=== PATIENT | female | born 1995 | race Caucasian/White ===

== ENCOUNTER 2020-09-19 13:53 | Emergency (ER) | payer OTHER, SELFPAY ==
--- NOTE | ~2020-09-19 | CT_ITS ---
EXAMINATION: CT ABDOMEN AND PELVIS WITHOUT CONTRAST CLINICAL INFORMATION: Abdominal pain COMPARISON: None TECHNIQUE: Contiguous axial thin section helical images of the abdomen were performed without contrast. The data set was reformatted in the coronal and sagittal planes and reviewed on an independent workstation. This CT examination was performed using dose optimization techniques as appropriate, variously including the following: *Automated exposure control *Adjustment of mA and/or kV according to patient size (this includes techniques or standardized protocols for targeted exams where dose is matched to indication/reason for exam; i.e. extremities or head) *Use of iterative reconstruction technique DLP: 760 mGy-cm FINDINGS: LUNG BASES: Unremarkable LIVER, GALLBLADDER, BILIARY TREE: Normal PANCREAS: Normal SPLEEN: No splenomegaly ADRENAL GLANDS, KIDNEYS URETERS AND BLADDER: No adrenal masses are seen. Both kidneys appear normal without stones, masses or hydronephrosis. Of note, in the region of the right uterine CTA, there is a 2 mm punctate calcifications seen with some mild equivocal thickening of the bladder at this location. The possibility of a tiny distal right ureteral calculus cannot be entirely excluded (4:667) and correlation is recommended with the patient's symptoms. BOWEL LOOPS: Some scattered colonic diverticular changes are present without diverticulitis. No evidence of bowel obstruction. Small bowel is nondilated. The appendix is normal. LYMPH NODES: No retroperitoneal lymphadenopathy. VASCULAR: Unremarkable. BONES: Unremarkable PELVIS: An anteverted uterus is present. Both ovaries appear normal. An abnormal adnexal mass is not seen. No free intraperitoneal fluid is present. CT/CT abdomen wo con IMPRESSION: Question of tiny tiny punctate nonobstructing calculus at right ureteral vesicle junction. Please correlate with patient's symptoms.
[2020-09-19 14:00] VITALS: BP 138/87; PULSE 77; RESP 15; TEMP 36.6; O2SAT 98; BMI 39.9
[2020-09-19 16:33] LABS: MANUAL DIFF FLAG NO
[2020-09-19 16:38] LABS: Basophils Percent Auto 0.6 % (0-2); Eosinophils Percent Auto 0.5 % (0-4); Hematocrit 37.5 % (37-47); Hemoglobin 12.4 g/dl (12.0-16.0); Imm Gran Abs Auto 0.02 X10*3/uL (0.00-0.03); Imm Gran Pct Auto 0.3 % (0.0-0.4); Lymphocytes Percent Auto 31.4 % (20-40); Mean Corpuscular HGB Conc 33.1 g/dl (31.0-35.0); Mean Corpuscular Hemoglobin 28.8 pg (27.0-33.0); Mean Platelet Volume 9.2 fL (9.4-12.3); Monocytes Absolute Auto 0.4 X10*3/uL (0.1-1.2); Monocytes Percent Auto 6.1 % (2-11); Neutrophils Absolute Auto 3.9 X10*3/uL (2.0-8.3); Neutrophils Percent Auto 61.1 % (45-73); Platelet Count 315 X10*3/uL (160-400); Red Blood Count 4.31 X10*6/uL (4.20-5.50); Red Cell Distribution Width 12.8 % (11.0-16.0); White Blood Count 6.4 X10*3/uL (4.8-10.8)
[2020-09-19 17:02] LABS: Anion Gap 16 (12-20); Blood Urea Nitrogen 15 mg/dL (9-16); Calcium 9.7 mg/dL (8.4-10.2); Carbon Dioxide 23 mmol/L (22-29); Chloride 107 mmol/L (96-108); Creatinine Clr Calc Pharmacy 118.7; Estimated Glomerular Filt Rate > 60; Glucose Random 88 mg/dL (60-115); Potassium 3.8 mmol/L (3.3-5.1); Sodium 142 mmol/L (135-145)
--- NOTE | 2020-09-19 17:45 | ED_ITS ---
HPI - Abdominal Pain General Chief Complaint: Abdominal Pain Stated Complaint: abd pain Time Seen by Provider: 09/19/20 18:20 Source: patient Mode of arrival: ambulatory Limitations: no limitations History of Present Illness HPI narrative: 25-year-old female with no significant past medical history presents with 3 days of epigastric pain and 5 days of lower abdominal pain with urinary frequency. She has not had any prior abdominal surgeries, and does not report any vaginal pain, vaginal discharge, abnormal vaginal bleeding, fevers, chills, chest pain or pressure, palpitations, cough, abdominal distention, [place], vomiting, diarrhea, constipation, or edema. MD elicited complaint: abdominal pain Pertinent past history: none Onset (ago): day(s) Pain Consistency: constant Location: epigastric and suprapubic Severity: moderate Pain scale (0-10): 7 Quality: aching Exacerbating factors: movement Associated symptoms: dysuria Treatments prior to arrival: NSAIDs Related Data Patient : No Previous Rx's Medication Instructions Recorded ibuprofen 600 mg PO Q6H PRN #60 tab 09/19/20 prednisone 20 mg PO DAILY 4 Days #4 tab 09/19/20 tamsulosin [Flomax] 0.4 mg PO DAILY #14 cap 09/19/20 Allergies Allergy/AdvReac Type Severity Reaction Status Date / Time No Known Allergies Allergy Unverified 02/18/20 17:01 Review of Systems Review of Systems Constitutional: No Weight loss, No Fever, No Chills, No Night Sweats, No Fatigue, No Malaise ENT/Mouth: No Hearing loss, No Ear Pain, No Nasal Congestion, No Sinus Pain, No Hoarseness, No sore throat, No Rhinorrhea, No Swallowing Difficulty Eyes: No Eye Pain, No Swelling, No Redness, No Foreign Body, No Discharge, No Vision Changes Cardiovascular: No Chest Pain, No SOB, No Dyspnea on Exertion, No Orthopnea, No Edema, No Palpitations Respiratory: No Cough, No Sputum, No Wheezing, No Smoke Exposure, No Dyspnea Gastrointestinal: Positive Nausea, Positive Vomiting, positive Diarrhea, posit luana abdominal Pain, No Hematochezia, No Melena Genitourinary: no irregular bleeding, No Dysuria, No Urinary Frequency, No Hematuria, No Urinary Incontinence, No Urgency, No Flank Pain, No Urinary Flow Changes, No Hesitancy Musculoskeletal: No joint pain, No Myalgias, No Joint Swelling Skin: No Skin Lesions, No rash Neuro: No Weakness, No Numbness, No Paresthesias, No Loss of Consciousness, No Dizziness, No Headache Psych: No Anxiety/Panic, No Depression, No SI/HI/AH/VH, No Social Issues Heme/Lymph: No Bruising, No Bleeding,No Lymphadenopathy Endocrine: No Polyuria, No Polydipsia, No Temperature Intolerance Physical Exam Vital Signs: Vital Signs: Last Vital Signs Temp 97.8 F 09/19/20 22:00 Pulse 65 09/19/20 22:00 Resp 18 09/19/20 22:00 BP 126/85 09/19/20 22:00 Pulse Ox 97 09/19/20 22:00 Body Mass Index 39.9 Appearance: Alert. Oriented X3. No acute distress. Eyes: Pupils equal, round and reactive to light. ENT: Pharynx normal. Neck: Normal inspection. Neck supple. CVS: Normal heart rate and rhythm. Pulses normal. Respiratory: No respiratory distress. Breath sounds normal. Abdomen: Soft and tender to palpation at the epigastric and suprapubic. No CVA tenderness. Skin: Skin warm and dry. Normal skin color. Normal skin turgor. Extremities: No lower extremity edema. Neuro: No motor deficit. No sensory deficit. Course Course Course Narrative: 25-year-old female with no significant past medical history presents with suprapubic abdominal pain, and epigastric abdominal pain for several days. Lower abdominal pain started prior to the epigastric pain. She does state also have muscle aches and thinks that she could be . CBC and Chem 7 were drawn while she was in the waiting room, currently awaiting urinalysis, U preg and CT of the abdomen, will add COVID swab. CT scan positive for kidney stones consistent with urinalysis positive for heme without leukocyte esterase nitrites or bacteria. Patient updated on plan to discharge with prednisone, Flomax, and Motrin. Patient verbalized understanding of and agrees to plan of care discharge home. MDM - Abdominal Pain Differential Diagnosis Differential diagnosis: Likely abdominal pain, acute appendicitis, calculus of kidney, ovarian cyst and pancreatitis Lab Data Attestation: I reviewed the patient's lab results. Result diagrams: 09/19/20 16:28 09/19/20 16:28 Labs: Lab Results 09/19/20 09/19/20 09/19/20 Range/Units 16:28 16:28 16:28 WBC 6.4 (4.8-10.8) X10*3/uL RBC 4.31 (4.20-5.50) X10*6/uL Hgb 12.4 (12.0-16.0) g/dl Hct 37.5 (37-47) % MCV 87.0 (80-98) fL MCH 28.8 (27.0-33.0) pg MCHC 33.1 (31.0-35.0) g/dl RDW 12.8 (11.0-16.0) % Plt Count 315 (160-400) X10*3/uL MPV 9.2 L (9.4-12.3) fL Immature Gran % (Auto) 0.3 (0.0-0.4) % Neut % (Auto) 61.1 (45-73) % Lymph % (Auto) 31.4 (20-40) % [place] % (Auto) 6.1 (2-11) % Eos % (Auto) 0.5 (0-4) % Baso % (Auto) 0.6 (0-2) % Lymph # (Auto) 2.0 (1.2-4.9) X10*3/uL [place] # (Auto) 0.4 (0.1-1.2) X10*3/uL Eos # (Auto) 0.0 (0.0-0.4) X10*3/uL Baso # (Auto) 0.0 (0.0-0.2) X10*3/uL Abs Immat Gran (auto) 0.02 (0.00-0.03) X10*3/uL Absolute Neuts (auto) 3.9 (2.0-8.3) X10*3/uL Absolute Nucleated RBC 0.000 (0.0-0.012) X10*3/uL Nucleated RBC % (auto) 0.0 (0.0-0.2) /100WBC Hold Blue Top SEE NOTE Sodium 142 (135-145) mmol/L Potassium 3.8 (3.3-5.1) mmol/L Chloride 107 (96-108) mmol/L Carbon Dioxide 23 (22-29) mmol/L Anion Gap 16 (12-20) BUN 15 (9-16) mg/dL Creatinine 0.81 (0.5-1.4) mg/dL Estim Creat Clear Calc 118.7 Estimated GFR > 60 Random Glucose 88 (60-115) mg/dL Calcium 9.7 (8.4-10.2) mg/dL Total Bilirubin 0.6 (0.0-1.0) mg/dL Direct Bilirubin < 0.2 (0.0-0.5) mg/dL AST 22 (5-31) U/L ALT 14 (0-31) U/L Alkaline Phosphatase 70 (39-117) U/L Total Protein 7.8 (6.5-8.0) g/dL Albumin 4.6 (3.5-5.0) g/dL Lipase 18 (8-78) U/L Urine Color Urine Appearance Urine pH (5.0-8.0) Ur Specific [place] (1.005-1.025) Urine Protein (NEG-TRACE) MG/DL Urine Glucose (UA) (NEG) MG/DL Urine Ketones (NEG) MG/DL Urine Blood (NEG) Urine Nitrite (NEG) Ur Leukocyte Esterase (NEG) Urine RBC (0) /HPF Urine WBC (0-4) /HPF Ur Squamous Epith Cells /LPF Urine Bacteria /LPF Urine Mucus /LPF Urine Test (NEGATIVE) COVID-19 (KAYLENE) (Negative) COVID-19 Clin Com 09/19/20 09/19/20 09/19/20 Range/Units 18:05 18:05 23:40 WBC (4.8-10.8) X10*3/uL RBC (4.20-5.50) X10*6/uL Hgb (12.0-16.0) g/dl Hct (37-47) % MCV (80-98) fL MCH (27.0-33.0) pg MCHC (31.0-35.0) g/dl RDW (11.0-16.0) % Plt Count (160-400) X10*3/uL MPV (9.4-12.3) fL Immature Gran % (Auto) (0.0-0.4) % Neut % (Auto) (45-73) % Lymph % (Auto) (20-40) % [place] % (Auto) (2-11) % Eos % (Auto) (0-4) % Baso % (Auto) (0-2) % Lymph # (Auto) (1.2-4.9) X10*3/uL [place] # (Auto) (0.1-1.2) X10*3/uL Eos # (Auto) (0.0-0.4) X10*3/uL Baso # (Auto) (0.0-0.2) X10*3/uL Abs Immat Gran (auto) (0.00-0.03) X10*3/uL Absolute Neuts (auto) (2.0-8.3) X10*3/uL Absolute Nucleated RBC (0.0-0.012) X10*3/uL Nucleated RBC % (auto) (0.0-0.2) /100WBC Hold Blue Top Sodium (135-145) mmol/L Potassium (3.3-5.1) mmol/L Chloride (96-108) mmol/L Carbon Dioxide (22-29) mmol/L Anion Gap (12-20) BUN (9-16) mg/dL Creatinine (0.5-1.4) mg/dL Estim Creat Clear Calc Estimated GFR Random Glucose (60-115) mg/dL Calcium (8.4-10.2) mg/dL Total Bilirubin (0.0-1.0) mg/dL Direct Bilirubin (0.0-0.5) mg/dL AST (5-31) U/L ALT (0-31) U/L Alkaline Phosphatase (39-117) U/L Total Protein (6.5-8.0) g/dL Albumin (3.5-5.0) g/dL Lipase (8-78) U/L Urine Color YELLOW Urine Appearance CLEAR Urine pH 7.0 (5.0-8.0) Ur Specific [place] 1.015 (1.005-1.025) Urine Protein NEG (NEG-TRACE) MG/DL Urine Glucose (UA) NEG (NEG) MG/DL Urine Ketones NEG (NEG) MG/DL Urine Blood 3+ H (NEG) Urine Nitrite NEG (NEG) Ur Leukocyte Esterase NEG (NEG) Urine RBC 10-14 H (0) /HPF Urine WBC 1-4 (0-4) /HPF Ur Squamous Epith Cells 2+ /LPF Urine Bacteria 1+ /LPF Urine Mucus 2+ /LPF Urine Test NEGATIVE (NEGATIVE) COVID-19 (KAYLENE) Negative (Negative) COVID-19 Clin Com See Note Imaging Data CT scan - abdomen: Attestation: I personally reviewed and interpreted this imaging study as follows: Radiologist's impression: EXAMINATION: CT ABDOMEN AND PELVIS WITHOUT CONTRAST CLINICAL INFORMATION: Abdominal pain COMPARISON: None TECHNIQUE: Contiguous axial thin section helical images of the abdomen were performed without contrast. The data set was reformatted in the coronal and sagittal planes and reviewed on an independent workstation. This CT examination was performed using dose optimization techniques as appropriate, variously including the following: *Automated exposure control *Adjustment of mA and/or kV according to patient size (this includes techniques or standardized protocols for targeted exams where dose is matched to indication/reason for exam; i.e. extremities or head) *Use of iterative reconstruction technique DLP: 760 mGy-cm FINDINGS: LUNG BASES: Unremarkable LIVER, GALLBLADDER, BILIARY TREE: Normal PANCREAS: Normal SPLEEN: No splenomegaly ADRENAL GLANDS, KIDNEYS URETERS AND BLADDER: No adrenal masses are seen. Both kidneys appear normal without stones, masses or hydronephrosis. Of note, in the region of the right uterine CTA, there is a 2 mm punctate calcifications seen with some mild equivocal thickening of the bladder at this location. The possibility of a tiny distal right ureteral calculus cannot be entirely excluded (4:667) and correlation is recommended with the patient's symptoms. BOWEL LOOPS: Some scattered colonic diverticular changes are present without diverticulitis. No evidence of bowel obstruction. Small bowel is nondilated. The appendix is normal. LYMPH NODES: No retroperitoneal lymphadenopathy. VASCULAR: Unremarkable. BONES: Unremarkable PELVIS: An anteverted uterus is present. Both ovaries appear normal. An abnormal adnexal mass is not seen. No free intraperitoneal fluid is present. CT/CT abdomen wo con IMPRESSION: Question of tiny tiny punctate nonobstructing calculus at right ureteral vesicle junction. Please correlate with patient's symptoms. Discharge Plan Discharge Clinical Impression: Kidney stone Patient Disposition: Home, Self-Care Instructions: Kidney Stones (ED), Flank Pain (ED) Additional Instructions: You were evaluated for abdominal pain. CT scan shows kidney stones. Please take prednisone and Flomax as directed. Follow up with your primary care p hysician in a week or 2 or as needed. If pain persists you may consider following up with Urology. Thank you for choosing this emergency department for evaluation. Please follow-up with primary care physician as needed. Return to the emergency department for any new, concerning, or worsening symptoms. Prescriptions: New tamsulosin [Flomax] 0.4 mg capsule 0.4 mg PO DAILY Qty: 14 RF: 0 prednisone 20 mg tablet 20 mg PO DAILY 4 Days Qty: 4 RF: 0 ibuprofen 600 mg tablet 600 mg PO Q6H PRN (Reason: pain) Qty: 60 RF: 0 Interventions: ED Discharge Assessment Last Done: 09/20/20 00:15 Discharge Date/Time: 09/20/20 00:17 [facility] Past Medical History Attestation statement: The following information was validated with the patient. Source: old records reviewed Medical History Healthy adult Social History Social History Alcohol intake: never Smoking Status: Never smoker Use of substances other than those prescribed or required for medical reasons: No Advance Directives: No Advance Directives Information Provided: Yes
[2020-09-19 18:00] VITALS: BP 121/80; PULSE 73; RESP 18; TEMP 36.7; O2SAT 98
[2020-09-19 18:25] LABS: Glucose Urine UA NEG (NEG); Leukocyte Esterase Urine NEG (NEG); Nitrite Urine NEG (NEG); Specific Gravity - Urine 1.015 (1.005-1.025); Urine Blood 3+ (NEG); Urine Ketones NEG (NEG); Urine Protein NEG (NEG-TRACE)
[2020-09-19 18:41] LABS: Appearance Urine CLEAR; Color Urine YELLOW
[2020-09-19 18:45] LABS: UPreg QC Valid YES; Urine Pregnancy NEGATIVE (NEGATIVE)
[2020-09-19 18:46] LABS: Alanine Aminotransferase 14 U/L (0-31); Albumin Level 4.6 g/dL (3.5-5.0); Alkaline Phosphatase 70 U/L (39-117); Aspartate Amino Transferase 22 U/L (5-31); Bilirubin Direct < 0.2 mg/dL (0.0-0.5); Bilirubin Total 0.6 mg/dL (0.0-1.0); Lipase 18 U/L (8-78); Total Protein 7.8 g/dL (6.5-8.0)
[2020-09-19 19:13] LABS: Squamous Epithelial Cell Urine 2+ /LPF
[2020-09-19 19:14] LABS: Bacteria Urine 1+ /LPF; Mucus Urine 2+ /LPF
[2020-09-19 19:55] VITALS: BP 119/76; PULSE 72; RESP 16; TEMP 36.6; O2SAT 100
--- NOTE | 2020-09-19 21:32 | PC.NURSE ---
Pt reports feeling better- asking to leave. [employer] Candy at bedside to discuss CT vs leaving AMA. Pt discussed risk and agreeable to CT.
[2020-09-19 22:00] VITALS: BP 126/85; PULSE 65; RESP 18; TEMP 36.6; O2SAT 97
[2020-09-20] LABS: COVID-19 Test Negative (Negative)
[2020-09-20] MEDS: Ketorolac Tromethamine 60 MG/2 ML VIAL IM (00:08)
[2020-09-20] MEDS: predniSONE 20 MG TABLET PO (00:08)
[2020-09-20] MEDS: Tamsulosin HCL 0.4 MG CAPSULE PO (00:08)
== END 2020-09-20 00:17 | disposition home or self-care (01) ==
PROVIDERS: Nurse Practitioner Family; Emergency Provider Internal Medicine
DX: N20.0 Calculus of kidney (principal); R10.9 Unspecified abdominal pain; R35.0 Frequency of micturition; Z20.822 Contact with and (suspected) exposure to COVID-19; Z79.899 Other long term (current) drug therapy
CPT/HCPCS: 36415; 72192; 74150; 80048; 80076; 81001; 81025; 83690; 85025; 87635; 96372; 96374; 99285; J1885

== ENCOUNTER 2021-05-17 14:05 | Outpatient (REF) | payer MEDICAID, SELFPAY ==
--- NOTE | ~2021-05-17 | US_ITS ---
EXAMINATION: US PELVIS CLINICAL INFORMATION: Oligomenorrhea COMPARISON: None TECHNIQUE: Ultrasound of the pelvis is performed using both transabdominal and transvaginal transducers along with Doppler. Transvaginal imaging is performed due to inadequate visualization transabdominally. FINDINGS: Uterus: The uterus is anteverted and measures 7.5 x 2.3 x 3.5 cm. The double wall endometrial thickness is 5 mm. The uterus is smooth in contour and has normal myometrial echogenicity. No visible fibroid. Adnexa: There are multiple small peripheral cysts or follicles seen in both ovaries. The ovaries are normal in size. Right ovary measures 3.3 x 2.7 x 2.5 cm. Left ovary measures 3.1 x 2.3 x 3 cm. There is no fluid in the pelvis. US/US pelvic and transvaginal IMPRESSION: Polycystic appearance of the ovaries. Otherwise unremarkable exam.
== END 2021-05-17 14:06 | disposition home or self-care (01) ==
LOC: HO.HMGCX 14:05
PROVIDERS: Visit Provider Registered Nurse Community Health
DX: N91.5 Oligomenorrhea, unspecified (principal)
CPT/HCPCS: 76830; 76856

== ENCOUNTER 2021-06-03 06:34 | Emergency (ER) | payer MEDICAID, SELFPAY ==
--- NOTE | ~2021-06-03 | XR_ITS ---
EXAMINATION: XR CHEST CLINICAL INFORMATION: Cough COMPARISON: None TECHNIQUE: Frontal view of the chest was obtained. FINDINGS: No significant abnormality is noted involving the heart, lungs, mediastinum, bony thorax or soft tissues. XR/XR chest 1V IMPRESSION: Unremarkable examination.
[2021-06-03 06:45] VITALS: BP 135/71; PULSE 109; RESP 22; O2SAT 95; BMI 42.5
[2021-06-03 06:57] VITALS: RESP 15; BMI 42.0
[2021-06-03 07:07] LABS: COVID-19 Test Negative (Negative); IDNOW Serial# 9DD0AD1C
--- NOTE | 2021-06-03 07:40 | ED_ITS ---
HPI - Headache General Chief Complaint: Headache Stated Complaint: Migraine, fever Time Seen by Provider: 06/03/21 07:38 Source: patient Mode of arrival: ambulatory Limitations: no limitations History of Present Illness HPI Narrative: 26-year-old female came in for evaluation headache and a dry cough. Patient came in for a headache for 1 day, feeling subjective fever, and dry cough. Patient did not try any medication for her symptoms, no sick contact, no recent travel. patient is not vaccinated for COVID because the patient history of Guillain-[place] syndrome. Patient declined photophobia, fever, or neck stiffness. Related Data Previous Rx's Medication Instructions Recorded ibuprofen 600 mg tablet 600 mg PO Q6H PRN #60 tab 09/19/20 prednisone 20 mg tablet 20 mg PO DAILY 4 Days #4 tab 09/19/20 tamsulosin 0.4 mg capsule (Flomax) 0.4 mg PO DAILY #14 cap 09/19/20 Allergies Allergy/AdvReac Type Severity Reaction Status Date / Time No Known Allergies Allergy Verified 06/03/21 07:00 Review of Systems Review of Systems: All other systems are reviewed and are negative Constitutional: Reports as per HPI and Reports no additional constitutional complaints Eyes: Reports as per HPI and Reports no additional eye complaints Reports system reviewed and no additional complaints, except as documented Cardiovascular: Reports as per HPI and Reports no additional cardiovascular complaints Respiratory: Reports as per HPI and Reports no additional respiratory complaints Gastrointestinal: Reports as per HPI and Reports no additional gastrointestinal complaints Genitourinary: Reports no additional female genitourinary complaints Musculoskeletal: Reports no additional musculoskeletal complaints Skin/Breast: Reports system reviewed and no additional complaints, except as docu Psychiatric: Reports no additional psychiatric complaints Endocrine: Reports no additional endocrine complaints Hematologic/Lymphatic: Reports no additional hematologic/lymphatic complaints Allergic/Immunologic: Reports no additional allergic/immunologic complaints Reports system reviewed and no additional complaints, except as documented and Reports Abnormal speech present [facility] Past Medical History Medical History Healthy adult Social History Social History Alcohol intake: never Advance Directives: No Advance Directives Information Provided: Yes Patient : No Physical Exam Vital Signs: Vital Signs: Last Vital Signs Pulse 109 H 06/03/21 06:45 Resp 15 06/03/21 06:57 BP 135/71 06/03/21 06:45 Pulse Ox 95 06/03/21 06:45 BMI result Body Mass Index 42.0 Vital signs have been reviewed as appeared to be correct. Blood pressure normal. Heart rate normal. Respiration rate normal. Temperature normal. Oxygen saturation normal. Appearance: Alert. Oriented X3. No acute distress. Head: Normal external exam. Normocephalic. Atraumatic. No Leblanc signs noted. No raccoon eyes noted Eyes: PERRLA. EOMI. Conjunctiva and sclera normal. Eyelids normal. ENT: TM's Normal. Pharynx normal. Uvula midline. Moist mucous membranes. No trismus noted. No drooling noted. No muffled voice noted. Neck: Normal inspection. Neck supple. FROM. No adenopathy. Thyroid Normal. No meningeal signs. No neck mass noted. CVS: Normal heart rate and rhythm. Heart sound normal. No murmurs noted. Pulses normal throughout. Respiratory: No respiratory distress. Painless inspiration. Breath sounds normal. No wheezes/rales/rhonchi noted. Chest nontender. No accessory muscle usage noted or decreased air movement noted. Abdomen: Soft and nontender. Bowel sounds normal in all 4 quadrants. No distention noted. No organomegaly noted. No visible injury noted. Back: No CVA tenderness. Full range of motion noted. Skin: Skin warm and dry. Normal skin color. Normal skin turgor. No rashes/lesions/lacerations noted. Extremities: No lower extremity edema. Extremities exhibit normal range of motion. Extremities nontender. Neuro: Oriented X 3. Cranial nerve exam: II-XII are grossly intact No motor deficit. No sensory deficit. Reflexes normal. Course Course Course Narrative: Assessment and plan. 26-year-old female came in with headache and coughing, patient received Tylenol and IV fluid hydration, patient was hungry with good appetite able to eat and drink, patient is negative for rapid strep, COVID, and flu. Chest x-ray show no acute pathology. Clean urine with negative . Patient feels better on the phone with her family with no symptoms will discharge to follow-up with PCP. MDM - Headache Lab Data Attestation: I reviewed the patient's lab results. Labs: Lab Results 06/03/21 06/03/21 06/03/21 Range/Units 06:40 08:15 08:15 Urine Color Urine Appearance Urine pH (5.0-8.0) Ur Specific [place] (1.005-1.025) Urine Protein (NEG-TRACE) MG/DL Urine Glucose (UA) (NEG) MG/DL Urine Ketones (NEG) MG/DL Urine Blood (NEG) Urine Nitrite (NEG) Ur Leukocyte Esterase (NEG) Urine Test (NEGATIVE) COVID-19 (KAYLENE) Negative (Negative) COVID-19 Clin Com See Note Influenza Type A (PCR) NEGATIVE (Negative) Influenza Type B (PCR) NEGATIVE (Negative) RSV RNA Qual (PCR) NEGATIVE (Negative) SARS-CoV-2 RNA (RT-PCR) NEGATIVE (Negative) S. pyogenes GrpA DELFINA Negative (Negative) 06/03/21 06/03/21 Range/Units 08:54 08:54 Urine Color YELLOW Urine Appearance CLEAR Urine pH 8.0 (5.0-8.0) Ur Specific [place] 1.015 (1.005-1.025) Urine Protein TRACE (NEG-TRACE) MG/DL Urine Glucose (UA) NEG (NEG) MG/DL Urine Ketones NEG (NEG) MG/DL Urine Blood NEG (NEG) Urine Nitrite NEG (NEG) Ur Leukocyte Esterase NEG (NEG) Urine Test NEGATIVE (NEGATIVE) COVID-19 (KAYLENE) (Negative) COVID-19 Clin Com Influenza Type A (PCR) (Negative) Influenza Type B (PCR) (Negative) RSV RNA Qual (PCR) (Negative) SARS-CoV-2 RNA (RT-PCR) (Negative) S. pyogenes GrpA DELFINA (Negative) Imaging Data Chest x-ray: Attestation: I personally reviewed and interpreted this imaging study as follows: Radiologist's impression: Unremarkable examination. Discharge Plan Discharge Clinical Impression: Headache Patient Disposition: Home, Self-Care Instructions: Acute Headache (ED) Prescriptions: No Action tamsulosin [Flomax] 0.4 mg capsule 0.4 mg PO DAILY Qty: 14 RF: 0 prednisone 20 mg tablet 20 mg PO DAILY 4 Days Qty: 4 RF: 0 ibuprofen 600 mg tablet 600 mg PO Q6H PRN (Reason: pain) Qty: 60 RF: 0 Referrals: Physician,Unknown J [Primary Care Provider] - 2 days
[2021-06-03] MEDS: Acetaminophen 325 MG TABLET 650 MG PO (07:56)
[2021-06-03] MEDS: 0.9 % Sodium Chloride 1,000 ML 999 ML IV (08:14)
[2021-06-03 08:31] LABS: Strep A Nucleic Acid Negative (Negative)
[2021-06-03 08:58] LABS: Influenza A PCR NEGATIVE (Negative); Influenza B PCR NEGATIVE (Negative); Resp Syncy Virus RNA Qual PCR NEGATIVE (Negative); SARS COV2 PCR INHOUSE NEGATIVE (Negative)
[2021-06-03 09:04] LABS: Appearance Urine CLEAR; Color Urine YELLOW; Glucose Urine UA NEG (NEG); Leukocyte Esterase Urine NEG (NEG); Nitrite Urine NEG (NEG); Specific Gravity - Urine 1.015 (1.005-1.025); Urine Blood NEG (NEG); Urine Ketones NEG (NEG); Urine Protein TRACE MG/DL (NEG-TRACE)
[2021-06-03 09:06] LABS: UPreg QC Valid YES; Urine Pregnancy NEGATIVE (NEGATIVE)
[2021-06-03 09:58] VITALS: TEMP 36.8
== END 2021-06-03 10:01 | disposition home or self-care (01) ==
PROVIDERS: Emergency Provider Emergency Medicine
DX: R51.9 Headache, unspecified (principal); R05.9 Cough, unspecified; Z20.822 Contact with and (suspected) exposure to COVID-19; Z79.899 Other long term (current) drug therapy
CPT/HCPCS: 0241U; 36415; 71045; 81003; 81025; 87635; 87651; 96360; 99284

== ENCOUNTER → 2021-06-23 13:51 | Outpatient (BNVA) | payer MEDICAID, SELFPAY | PROVIDERS: PCP Registered Nurse Community Health; Visit Provider Advanced Practice Midwife | DX: Z31.69 Encounter for other general counseling and advice on procreation (principal); L68.0 Hirsutism; N97.0 Female infertility associated with anovulation; E28.2 Polycystic ovarian syndrome | CPT/HCPCS: 99202 ==

== ENCOUNTER 2022-06-08 11:22 | Emergency (ER) | payer MEDICAID, SELFPAY ==
[2022-06-08 11:42] VITALS: BP 136/85; PULSE 79; RESP 20; TEMP 36.8; O2SAT 96; BMI 36.6
--- NOTE | 2022-06-08 11:42 | ED.ABDPAIN ---
HPI - Abdominal Pain General Chief Complaint: Abdominal Pain <Rossi Adame CNP - Last Filed: 06/08/22 11:44> Stated Complaint: body ache, headache <Rossi Adame CNP - Last Filed: 06/08/22 11:44> Time Seen by Provider: 06/08/22 11:54 <Rossi Adame CNP - Last Filed: 06/08/22 11:44> Source: patient <WHIT Levin - Last Filed: 06/08/22 17:28> Mode of arrival: ambulatory <WHIT Levin Last Filed: 06/08/22 17:28> Limitations: no limitations <WHIT Levin Last Filed: 06/08/22 17:28> History of Present Illness HPI narrative: Patient is a 27 year old assigned female at with a history of PCOS presenting to the emergency department today with epigastric pain. Patient states that over the last 3 days she has had epigastric pain, nausea, and a headache. Patient denies any dizziness, lightheadedness, vomiting, fever, chills, blurry vision, double vision, loss of vision, chest pain, difficulty breathing, shortness of breath, back pain, night sweats, pain with urination, increased urinary frequency, increased urinary urgency, blood in her urine or stool, syncope or a near syncopal episode, recent trauma or falls, bowel incontinence, bladder incontinence, bowel retention, bladder retention, or any other complaints at this time. <WHIT Levin Last Filed: 06/08/22 17:28> Location: epigastric <WHIT Levin Last Filed: 06/08/22 17:28> Severity: mild <WHIT Levin Last Filed: 06/08/22 17:28> Pain scale (0-10): 2 <WHIT Levin Last Filed: 06/08/22 17:28> Radiation: none <WHIT Levin Last Filed: 06/08/22 17:28> Exacerbating factors: nothing <WHIT Levin Last Filed: 06/08/22 17:28> Relieving factors: nothing <WHIT Levin Last Filed: 06/08/22 17:28> Associated symptoms: nausea <WHIT Levin - Last Filed: 06/08/22 17:28> Related Data Home Medications: Previous Rx's Medication Instructions Recorded medroxyprogesterone 10 mg tablet 10 mg PO DAILY 10 days #10 tabs 06/23/21 (Provera) vitamin with calcium 1 tab PO DAILY #30 tabs 06/23/21 no.72-iron 27 mg-folic acid 1 mg tablet ( Vitamins Plus Low Iron) <Rossi Adame CNP - Last Filed: 06/08/22 11:44> Allergies/Adverse Reactions: Allergies Allergy/AdvReac Type Severity Reaction Status Date / Time No Known Allergies Allergy Verified 06/23/21 13:53 <Rossi Adame CNP - Last Filed: 06/08/22 11:44> Review of Systems Constitutional: Reports no additional constitutional complaints, Denies chills, Denies fever(s) and Denies night sweats <WHIT Levin Last Filed: 06/08/22 17:28> Eyes: Reports no additional eye complaints, Denies blurry vision, Denies change in vision, Denies diplopia, Denies eye discharge, Denies loss of vision and Denies eye pain <WHIT Levin Last Filed: 06/08/22 17:28> Denies dizziness <WHIT Levin - Last Filed: 06/08/22 17:28> Cardiovascular: Reports no additional cardiovascular complaints, Denies chest pain, Denies lightheadedness, Denies Loss of Consciousness and Denies dyspnea <WHIT Levin - Last Filed: 06/08/22 17:28> Respiratory: Reports no additional respiratory complaints and Denies dyspnea <WHIT Levin - Last Filed: 06/08/22 17:28> Gastrointestinal: Reports no additional gastrointestinal complaints, Reports abdominal pain (epigastric), Denies melena, Denies hematochezia, Denies change in bowel habits, Denies change in stool character and Reports nausea <WHIT Levin Last Filed: 06/08/22 17:28> Genitourinary: Denies hematuria, Denies urinary frequency, Denies dysuria, Denies urinary incontinence, Denies urinary hesitancy and Denies urinary urgency <WHIT Levin - Last Filed: 06/08/22 17:28> Musculoskeletal: Reports no additional musculoskeletal complaints, Denies numbness and Denies tingling <WHIT Levin - Last Filed: 06/08/22 17:28> Denies dizziness, Denies loss of vision, Denies numbness and Denies tingling <WHIT Levin - Last Filed: 06/08/22 17:28> Psychiatric: Reports no additional psychiatric complaints <WHIT Levin - Last Filed: 06/08/22 17:28> Endocrine: Reports no additional endocrine complaints <WHIT Levin - Last Filed: 06/08/22 17:28> Hematologic/Lymphatic: Reports no additional hematologic/lymphatic complaints <WHIT Levin - Last Filed: 06/08/22 17:28> Allergic/Immunologic: Reports no additional allergic/immunologic complaints <WHIT Levin - Last Filed: 06/08/22 17:28> PMFSH Past Medical History Attestation statement: The following information was validated with the patient. <WHIT Levin - Last Filed: 06/08/22 17:28> Source: old records reviewed and nursing notes reviewed <WHIT Levin - Last Filed: 06/08/22 17:28> Medical History: Medical History Guillain-Mapleton syndrome Healthy adult Infertility associated with anovulation Morbid obesity with BMI of 40.0-44.9, adult PCOS (polycystic ovarian syndrome) <Rossi Adame CNP - Last Filed: 06/08/22 11:44> Social History Social History: Social History Alcohol intake: never Patient Tobacco Use Status: Never used Tobacco Substance Use Type: Marijuana Advance Directives: No <Rossi Adame CNP - Last Filed: 06/08/22 11:44> Physical Exam ED Vital Signs: Vital Signs - 24 hr 06/08/22 11:42 06/08/22 11:56 Temperature 98.3 F 98.3 F Pulse Rate 79 75 Respiratory Rate 20 14 Blood Pressure 136/85 120/75 Pulse Oximetry 96 94 Oxygen Delivery Method Room Air Room Air BMI result Body Mass Index 36.6 <Rossi Adame CNP - Last Filed: 06/08/22 11:44> Vital Signs - 24 hr 06/08/22 11:42 06/08/22 11:56 Temperature 98.3 F 98.3 F Pulse Rate 79 75 Respiratory Rate 20 14 Blood Pressure 136/85 120/75 Pulse Oximetry 96 94 Oxygen Delivery Method Room Air Room Air BMI result Body Mass Index 36.6 <WHIT Levin - Last Filed: 06/08/22 17:28> Const General: cooperative, no acute distress, alert and awake <WHIT Levin - Last Filed: 06/08/22 17:28> Nutritional Appearance: well nourished <WHIT Levin - Last Filed: 06/08/22 17:28> Orientation/consciousness: patient oriented x3 <WHIT Levin - Last Filed: 06/08/22 17:28> Limitations: no limitations <WHIT Levin - Last Filed: 06/08/22 17:28> HENNC Head: Yes normal to inspection and Yes atraumatic <WHIT Levin - Last Filed: 06/08/22 17:28> Ears: hearing grossly normal bilaterally and external ears normal <WHIT Levin - Last Filed: 06/08/22 17:28> General nose exam: Normal external nose present, no nasal discharge noted and no epistaxis <WHIT Levin - Last Filed: 06/08/22 17:28> Face and sinus: Yes normal facial exam, No abrasion and No laceration <WHIT Levin - Last Filed: 06/08/22 17:28> Mouth: Normal oral and palatal mucosa present, no drooling and no muffled voice <WHIT Levin - Last Filed: 06/08/22 17:28> Eyes General: appearance normal, both eyes and all related structures <WHIT Levin - Last Filed: 06/08/22 17:28> Periorbital: periorbital findings normal <WHIT Levin - Last Filed: 06/08/22 17:28> Eyelids: Yes eyelids normal <WHIT Levin - Last Filed: 06/08/22 17:28> Conjunctivae: conjunctivae normal <Karla Gordon PA - Last Filed: 06/08/22 17:28> Pupils: Equal, round and reactive pupils present <Karla Gordon PA - Last Filed: 06/08/22 17:28> EOM: EOMs intact bilaterally <Karla Gordon PA - Last Filed: 06/08/22 17:28> Neck Neck: Yes normal visual inspection, Yes full ROM and Yes no lymphadenopathy <Karla Gordon PA - Last Filed: 06/08/22 17:28> Chest Chest palpation & inspection: normal inspection of the chest <Karla Gordon PA - Last Filed: 06/08/22 17:28> Resp Effort & Inspection: normal respiratory effort and able to speak in complete sentences <Karla Gordon PA - Last Filed: 06/08/22 17:28> Auscultation: clear to auscultation bilaterally <Karla Gordon [place] - Last Filed: 06/08/22 17:28> Cardio Rate: regular rate <Karla Gordon PA - Last Filed: 06/08/22 17:28> Rhythm: regular rhythm <Karla Gordon PA - Last Filed: 06/08/22 17:28> GI Inspection: Yes normal to inspection <Karla Gordon [place] - Last Filed: 06/08/22 17:28> Palpation (GI): Soft to palpation, not firm, nontender, no guarding and not rigid <Karla Gordon [place] - Last Filed: 06/08/22 17:28> Neuro General: patient oriented x3 and moves all extremities <Karla Gordon PA - Last Filed: 06/08/22 17:28> Cranial nerves: Yes Equal, round and reactive pupils present <Karla Gordon PA - Last Filed: 06/08/22 17:28> Cognition (Neuro): normal cognition <Karla Gordon PA - Last Filed: 06/08/22 17:28> Motor exam (neuro): 5/5 motor strength present throughout <Karla Rodriguezcielo PA - Last Filed: 06/08/22 17:28> Sensory Exam: Normal double simultaneous stimulation for sensation <Karla RodriguezWHIT buck - Last Filed: 06/08/22 17:28> Coordination: [id number] test normal <Karla RodriguezWHIT buck - Last Filed: 06/08/22 17:28> Extrem General: Yes normal to inspection, Yes full ROM and Yes capillary refill normal <Karla GordonWHIT - Last Filed: 06/08/22 17:28> Psych Appearance: grossly normal <Karla RodriguezWHIT buck - Last Filed: 06/08/22 17:28> Mental Status: mental status grossly normal <Karla RodriguezWHIT buck - Last Filed: 06/08/22 17:28> Affect: normal affect <Karlabarney RodriguezWHIT buck - Last Filed: 06/08/22 17:28> Attitude: cooperative <Karlabarney RodriguezWHIT buck - Last Filed: 06/08/22 17:28> Thought process: Normal thought process present <Karlabarney RodriguezWHIT buck - Last Filed: 06/08/22 17:28> Thought content: Normal thought content present <WHIT Levin - Last Filed: 06/08/22 17:28> Insight: Good insight present (Psych) <Karla RodriguezWHTI buck - Last Filed: 06/08/22 17:28> Course Course Course Narrative: This is an RME: Additional HPI, ROS, PE not included below will be deferred to primary provider. Patient is a 27-year-old female who presents to emergency department with complaints of Epigastric pain, nausea, vomiting, headache, body aches, with symptom onset 3 days ago. She has trialed Tylenol and Pepto-Bismol without any improvement. Plan: CBC, CMP, lipase, urinalysis, urine , viral testing <Rossi Adame CNP - Last Filed: 06/08/22 11:44> Medical Decision Making Medical Decision Making MDM Narrative: Patient is a 27 year old assigned female at with a history of PCOS presenting to the emergency department today with epigastric pain and nausea. Patient's physical exam was unremarkable. Patient's blood work was unremarkable. Patient's urine showed no acute process. I explained my physical exam findings as well as all test results to the patient. I answered all questions asked by the patient. I stressed the importance of the patient taking her medication as prescribed. I stressed the importance of the patient following up with her primary care provider. I stressed the importance of the patient returning to the emergency department immediately if her symptoms were to worsen or if she were to develop any dizziness, shortness of breath, difficulty breathing, chest pain, blurry vision, loss of vision, nausea, vomiting, abdominal pain, fever, chills, back pain, or any other complaints. Patient verbalized agreement and understanding with this treatment plan and discharge. <WHIT Levin - Last Filed: 06/08/22 17:28> Differential Diagnosis Differential Diagnoses: The differential diagnosis associated with the presentation includes <WHIT Levin - Last Filed: 06/08/22 17:28> epigastric pain, nausea, GERD <WHIT Levin - Last Filed: 06/08/22 17:28> Lab Data MDM Lab Attestation statement: I reviewed the patient's lab results. <WHIT Levin - Last Filed: 06/08/22 17:28> Result Diagrams: 06/08/22 12:23 06/08/22 12:23 <Rossi Adame CNP - Last Filed: 06/08/22 11:44> Labs: Lab Results 06/08/22 06/08/22 06/08/22 Range/Units 12:23 12:23 12:23 WBC 4.3 L (4.8-10.8) X10*3/uL RBC 4.20 (4.20-5.50) X10*6/uL Hgb 11.8 L (12.0-16.0) g/dl Hct 35.4 L (37.0-47.0) % MCV 84.3 (80.0-98.0) fL MCH 28.1 (27.0-33.0) pg MCHC 33.3 (31.0-35.0) g/dl RDW 12.8 (11.0-16.0) % Plt Count 280 (160-400) X10*3/uL MPV 8.7 L (9.4-12.3) fL Immature Gran % (Auto) 0.2 (0.0-0.4) % Neut % (Auto) 57.0 (45-73) % Lymph % (Auto) 31.8 (20-40) % [place] % (Auto) 9.4 (2-11) % Eos % (Auto) 0.9 (0-4) % Baso % (Auto) 0.7 (0-2) % Lymph # (Auto) 1.4 (1.2-4.9) X10*3/uL [place] # (Auto) 0.4 (0.1-1.2) X10*3/uL Eos # (Auto) 0.0 (0.0-0.4) X10*3/uL Baso # (Auto) 0.0 (0.0-0.2) X10*3/uL Abs Immat Gran (auto) 0.01 (0.00-0.03) X10*3/uL Absolute Neuts (auto) 2.4 (2.0-8.3) x10*3/uL Absolute Nucleated RBC 0.000 (0.0-0.012) X10*3/uL Nucleated RBC % (auto) 0.0 (0.0-0.2) /100WBC Sodium 140 (135-145) mmol/L Potassium 3.9 (3.3-5.1) mmol/L Chloride 106 (96-108) mmol/L Carbon Dioxide 25 (22-29) mmol/L Anion Gap 13 (12-20) BUN 12 (9-16) mg/dL Creatinine 0.64 (0.5-1.4) mg/dL Estim Creat Clear Calc 140.7 Estimated GFR > 60 Random Glucose 104 (60-115) mg/dL Calcium 9.4 (8.4-10.2) mg/dL Total Bilirubin 0.2 (0.0-1.0) mg/dL AST 18 (5-31) U/L ALT 10 (0-31) U/L Alkaline Phosphatase 73 (39-117) U/L Total Protein 7.2 (6.5-8.0) g/dL Albumin 4.4 (3.5-5.0) g/dL Lipase 20 (8-78) U/L Urine Color Urine Appearance Urine pH (5.0-9.0) Ur Specific [place] (1.005-1.025) Urine Protein (Neg-Trace) mg/dL Urine Glucose (UA) (Negative) mg/dL Urine Ketones (Negative) mg/dL Urine Blood (Negative) Urine Nitrite (Negative) Ur Leukocyte Esterase (Negative) Urine RBC (0-2) /HPF Urine WBC (0-5) /HPF Ur Squamous Epith Cells (0-2) /HPF Urine Bacteria (None Seen) Hyaline Casts (0-2) /LPF Urine Test (NEGATIVE) COVID-19 (KAYLENE) (Negative) COVID-19 Clin Com Influenza Type A (DELFINA) Negative (Negative) Influenza Type B (DELFINA) Negative (Negative) Influenza A & B Note See Note 06/08/22 06/08/22 06/08/22 Range/Units 12:23 13:37 13:37 WBC (4.8-10.8) X10*3/uL RBC (4.20-5.50) X10*6/uL Hgb (12.0-16.0) g/dl Hct (37.0-47.0) % MCV (80.0-98.0) fL MCH (27.0-33.0) pg MCHC (31.0-35.0) g/dl RDW (11.0-16.0) % Plt Count (160-400) X10*3/uL MPV (9.4-12.3) fL Immature Gran % (Auto) (0.0-0.4) % Neut % (Auto) (45-73) % Lymph % (Auto) (20-40) % [place] % (Auto) (2-11) % Eos % (Auto) (0-4) % Baso % (Auto) (0-2) % Lymph # (Auto) (1.2-4.9) X10*3/uL [place] # (Auto) (0.1-1.2) X10*3/uL Eos # (Auto) (0.0-0.4) X10*3/uL Baso # (Auto) (0.0-0.2) X10*3/uL Abs Immat Gran (auto) (0.00-0.03) X10*3/uL Absolute Neuts (auto) (2.0-8.3) x10*3/uL Absolute Nucleated RBC (0.0-0.012) X10*3/uL Nucleated RBC % (auto) (0.0-0.2) /100WBC Sodium (135-145) mmol/L Potassium (3.3-5.1) mmol/L Chloride (96-108) mmol/L Carbon Dioxide (22-29) mmol/L Anion Gap (12-20) BUN (9-16) mg/dL Creatinine (0.5-1.4) mg/dL Estim Creat Clear Calc Estimated GFR Random Glucose (60-115) mg/dL Calcium (8.4-10.2) mg/dL Total Bilirubin (0.0-1.0) mg/dL AST (5-31) U/L ALT (0-31) U/L Alkaline Phosphatase (39-117) U/L Total Protein (6.5-8.0) g/dL Albumin (3.5-5.0) g/dL Lipase (8-78) U/L Urine Color Yellow Urine Appearance Clear Urine pH 7.0 (5.0-9.0) Ur Specific [place] 1.025 (1.005-1.025) Urine Protein Trace (Neg-Trace) mg/dL Urine Glucose (UA) Negative (Negative) mg/dL Urine Ketones Trace (Negative) mg/dL Urine Blood Negative (Negative) Urine Nitrite Negative (Negative) Ur Leukocyte Esterase Small (1+) H (Negative) Urine RBC 0-2 (0-2) /HPF Urine WBC 6-10 H (0-5) /HPF Ur Squamous Epith Cells 3-5 (0-2) /HPF Urine Bacteria None Seen (None Seen) Hyaline Casts 0-2 (0-2) /LPF Urine Test NEGATIVE (NEGATIVE) COVID-19 (KAYLENE) Negative (Negative) COVID-19 Clin Com See Note Influenza Type A (DELFINA) (Negative) Influenza Type B (DELFINA) (Negative) Influenza A & B Note <Rossi Adame, MARLEN - Last Filed: 06/08/22 11:44> Lab Results 06/08/22 06/08/22 06/08/22 Range/Units 12:23 12:23 12:23 WBC 4.3 L (4.8-10.8) X10*3/uL RBC 4.20 (4.20-5.50) X10*6/uL Hgb 11.8 L (12.0-16.0) g/dl Hct 35.4 L (37.0-47.0) % MCV 84.3 (80.0-98.0) fL MCH 28.1 (27.0-33.0) pg MCHC 33.3 (31.0-35.0) g/dl RDW 12.8 (11.0-16.0) % Plt Count 280 (160-400) X10*3/uL MPV 8.7 L (9.4-12.3) fL Immature Gran % (Auto) 0.2 (0.0-0.4) % Neut % (Auto) 57.0 (45-73) % Lymph % (Auto) 31.8 (20-40) % [place] % (Auto) 9.4 (2-11) % Eos % (Auto) 0.9 (0-4) % Baso % (Auto) 0.7 (0-2) % Lymph # (Auto) 1.4 (1.2-4.9) X10*3/uL [place] # (Auto) 0.4 (0.1-1.2) X10*3/uL Eos # (Auto) 0.0 (0.0-0.4) X10*3/uL Baso # (Auto) 0.0 (0.0-0.2) X10*3/uL Abs Immat Gran (auto) 0.01 (0.00-0.03) X10*3/uL Absolute Neuts (auto) 2.4 (2.0-8.3) x10*3/uL Absolute Nucleated RBC 0.000 (0.0-0.012) X10*3/uL Nucleated RBC % (auto) 0.0 (0.0-0.2) /100WBC Sodium 140 (135-145) mmol/L Potassium 3.9 (3.3-5.1) mmol/L Chloride 106 (96-108) mmol/L Carbon Dioxide 25 (22-29) mmol/L Anion Gap 13 (12-20) BUN 12 (9-16) mg/dL Creatinine 0.64 (0.5-1.4) mg/dL Estim Creat Clear Calc 140.7 Estimated GFR > 60 Random Glucose 104 (60-115) mg/dL Calcium 9.4 (8.4-10.2) mg/dL Total Bilirubin 0.2 (0.0-1.0) mg/dL AST 18 (5-31) U/L ALT 10 (0-31) U/L Alkaline Phosphatase 73 (39-117) U/L Total Protein 7.2 (6.5-8.0) g/dL Albumin 4.4 (3.5-5.0) g/dL Lipase 20 (8-78) U/L Urine Color Urine Appearance Urine pH (5.0-9.0) Ur Specific [place] (1.005-1.025) Urine Protein (Neg-Trace) mg/dL Urine Glucose (UA) (Negative) mg/dL Urine Ketones (Negative) mg/dL Urine Blood (Negative) Urine Nitrite (Negative) Ur Leukocyte Esterase (Negative) Urine RBC (0-2) /HPF Urine WBC (0-5) /HPF Ur Squamous Epith Cells (0-2) /HPF Urine Bacteria (None Seen) Hyaline Casts (0-2) /LPF Urine Test (NEGATIVE) COVID-19 (KAYLENE) (Negative) COVID-19 Clin Com Influenza Type A (DELFINA) Negative (Negative) Influenza Type B (DELFINA) Negative (Negative) Influenza A & B Note See Note 06/08/22 06/08/22 06/08/22 Range/Units 12:23 13:37 13:37 WBC (4.8-10.8) X10*3/uL RBC (4.20-5.50) X10*6/uL Hgb (12.0-16.0) g/dl Hct (37.0-47.0) % MCV (80.0-98.0) fL MCH (27.0-33.0) pg MCHC (31.0-35.0) g/dl RDW (11.0-16.0) % Plt Count (160-400) X10*3/uL MPV (9.4-12.3) fL Immature Gran % (Auto) (0.0-0.4) % Neut % (Auto) (45-73) % Lymph % (Auto) (20-40) % [place] % (Auto) (2-11) % Eos % (Auto) (0-4) % Baso % (Auto) (0-2) % Lymph # (Auto) (1.2-4.9) X10*3/uL [place] # (Auto) (0.1-1.2) X10*3/uL Eos # (Auto) (0.0-0.4) X10*3/uL Baso # (Auto) (0.0-0.2) X10*3/uL Abs Immat Gran (auto) (0.00-0.03) X10*3/uL Absolute Neuts (auto) (2.0-8.3) x10*3/uL Absolute Nucleated RBC (0.0-0.012) X10*3/uL Nucleated RBC % (auto) (0.0-0.2) /100WBC Sodium (135-145) mmol/L Potassium (3.3-5.1) mmol/L Chloride (96-108) mmol/L Carbon Dioxide (22-29) mmol/L Anion Gap (12-20) BUN (9-16) mg/dL Creatinine (0.5-1.4) mg/dL Estim Creat Clear Calc Estimated GFR Random Glucose (60-115) mg/dL Calcium (8.4-10.2) mg/dL Total Bilirubin (0.0-1.0) mg/dL AST (5-31) U/L ALT (0-31) U/L Alkaline Phosphatase (39-117) U/L Total Protein (6.5-8.0) g/dL Albumin (3.5-5.0) g/dL Lipase (8-78) U/L Urine Color Yellow Urine Appearance Clear Urine pH 7.0 (5.0-9.0) Ur Specific [place] 1.025 (1.005-1.025) Urine Protein Trace (Neg-Trace) mg/dL Urine Glucose (UA) Negative (Negative) mg/dL Urine Ketones Trace (Negative) mg/dL Urine Blood Negative (Negative) Urine Nitrite Negative (Negative) Ur Leukocyte Esterase Small (1+) H (Negative) Urine RBC 0-2 (0-2) /HPF Urine WBC 6-10 H (0-5) /HPF Ur Squamous Epith Cells 3-5 (0-2) /HPF Urine Bacteria None Seen (None Seen) Hyaline Casts 0-2 (0-2) /LPF Urine Test NEGATIVE (NEGATIVE) COVID-19 (KAYLENE) Negative (Negative) COVID-19 Clin Com See Note Influenza Type A (DELFINA) (Negative) Influenza Type B (DELFINA) (Negative) Influenza A & B Note <WHIT Levin - Last Filed: 06/08/22 17:28> Discharge Plan Discharge Clinical Impression: Nausea & vomiting <Rossi Adame CNP - Last Filed: 06/08/22 11:44> Patient Disposition: Home, Self-Care <Rossi Adame CNP - Last Filed: 06/08/22 11:44> Instructions: Acute Nausea and Vomiting (ED) <Rossi Adame CNP - Last Filed: 06/08/22 11:44> Additional Instructions: Follow up with your primary care provider. Return to the emergency department immediately if your symptoms worsen or if you develop any dizziness, shortness of breath, difficulty breathing, chest pain, blurry vision, loss of vision, nausea, vomiting, abdominal pain, fever, chills, back pain, or any other complaints. <Rossi Adame CNP - Last Filed: 06/08/22 11:44> Prescriptions: No Action medroxyprogesterone [Provera] 10 mg tablet 10 mg PO DAILY 10 Days Qty: 10 2RF Rx Instructions: may repeat dose in 3 months if no menses and negative test Vitamin Plus Low Iron 27 mg iron- 1 mg tablet 1 tab PO DAILY Qty: 30 11RF <Rossi Adame CNP - Last Filed: 06/08/22 11:44> Stand Alone Forms: Work/School Release <Rossi Adame CNP - Last Filed: 06/08/22 11:44> Interventions: ED Discharge Assessment Last Done: 06/08/22 14:16 <Rossi Adame CNP - Last Filed: 06/08/22 11:44> Discharge Date/Time: 06/08/22 14:20 <Rossi Adame CNP - Last Filed: 06/08/22 11:44> Print Language: [place]alan <Rossi Adame CNP - Last Filed: 06/08/22 11:44>
[2022-06-08 11:56] VITALS: BP 120/75; PULSE 75; RESP 14; TEMP 36.8; O2SAT 94
--- OUTSIDE RECORDS SUMMARY | 2022-06-08 12:01 | XMS_ITS | Continuity of Care Document ---
:1995 Author Organization [facility] Address Unavailable , Care Team Providers Name Role Phone Jane Travis MD Primary Care Physician Encounter [facility] Date(s): 10/02/21 - 11/01/21 [facility] Attending Physician: Екатерина Lewis Admitting Physician: Екатерина Lewis Referring Physician: trЕкатерина Allergies, Adverse Reactions, Alerts No Known Allergies
--- OUTSIDE RECORDS SUMMARY | 2022-06-08 12:01 | XMS_ITS | Continuity of Care Document ---
:1995 Author Organization [facility] Address Unavailable , Care Team Providers Name Role Phone Thaddeus CLAIRE, Jane Villafuerte Primary Care Physician Encounter [facility] Date(s): 07/04/21 - 11/01/21 [facility] Attending Physician: Sunni Luo MD Referring Physician: Berta Harris CNM, I Allergies, Adverse Reactions, Alerts No Known Allergies
[2022-06-08 12:27] LABS: MANUAL DIFF FLAG NO
[2022-06-08 12:29] LABS: Basophils Percent Auto 0.7 % (0-2); Eosinophils Percent Auto 0.9 % (0-4); Hematocrit 35.4 % (37.0-47.0); Hemoglobin 11.8 g/dl (12.0-16.0); Imm Gran Abs Auto 0.01 X10*3/uL (0.00-0.03); Imm Gran Pct Auto 0.2 % (0.0-0.4); Lymphocytes Absolute Auto 1.4 X10*3/uL (1.2-4.9); Lymphocytes Percent Auto 31.8 % (20-40); Mean Corpuscular HGB Conc 33.3 g/dl (31.0-35.0); Mean Corpuscular Hemoglobin 28.1 pg (27.0-33.0); Mean Corpuscular Volume 84.3 fL (80.0-98.0); Mean Platelet Volume 8.7 fL (9.4-12.3); Monocytes Absolute Auto 0.4 X10*3/uL (0.1-1.2); Monocytes Percent Auto 9.4 % (2-11); Neutrophils Absolute Auto 2.4 x10*3/uL (2.0-8.3); Platelet Count 280 X10*3/uL (160-400); Red Cell Distribution Width 12.8 % (11.0-16.0); White Blood Count 4.3 X10*3/uL (4.8-10.8)
[2022-06-08 12:44] LABS: Alanine Aminotransferase 10 U/L (0-31); Albumin Level 4.4 g/dL (3.5-5.0); Alkaline Phosphatase 73 U/L (39-117); Anion Gap 13 (12-20); Aspartate Amino Transferase 18 U/L (5-31); Bilirubin Total 0.2 mg/dL (0.0-1.0); Blood Urea Nitrogen 12 mg/dL (9-16); COVID-19 Test Negative (Negative); Calcium 9.4 mg/dL (8.4-10.2); Carbon Dioxide 25 mmol/L (22-29); Chloride 106 mmol/L (96-108); Creatinine Clr Calc Pharmacy 140.7; Estimated Glomerular Filt Rate > 60; Glucose Random 104 mg/dL (60-115); IDNOW Serial# BCCEAD1C; Lipase 20 U/L (8-78); Potassium 3.9 mmol/L (3.3-5.1); Sodium 140 mmol/L (135-145); Total Protein 7.2 g/dL (6.5-8.0)
[2022-06-08 12:47] LABS: IDNOW Serial# 9DB6401D; Influenza A Negative (Negative); Influenza B2 Negative (Negative)
[2022-06-08 13:50] LABS: Appearance Urine Clear; Color Urine Yellow; Glucose Urine UA Negative (Negative); Leukocyte Esterase Urine Small (1+) (Negative); Nitrite Urine Negative (Negative); Specific Gravity - Urine 1.025 (1.005-1.025); UMIC TRIGGER UACC YES; Urine Blood Negative (Negative); Urine Ketones Trace mg/dL (Negative); Urine Protein Trace mg/dL (Neg-Trace)
[2022-06-08 13:53] LABS: UPreg QC Valid YES; Urine Pregnancy NEGATIVE (NEGATIVE)
[2022-06-08 13:54] LABS: Bacteria Urine None Seen (None Seen); Hyaline Casts Urine 0-2 /LPF (0-2); RBC Urine 0-2 /HPF (0-2); UACC Culture Trigger YES
== END 2022-06-08 14:20 | disposition home or self-care (01) ==
PROVIDERS: Nurse Practitioner Family; Emergency Provider Emergency Medicine
DX: R10.13 Epigastric pain (principal); R51.9 Headache, unspecified; Z20.822 Contact with and (suspected) exposure to COVID-19; Z79.899 Other long term (current) drug therapy
CPT/HCPCS: 80053; 81001; 81025; 83690; 85025; 87086; 87502; 87635; 99283; 99284

== ENCOUNTER 2022-06-30 14:34 | Emergency (ER) | payer MEDICAID, SELFPAY ==
--- NOTE | ~2022-06-30 | XR_ITS ---
EXAMINATION: LEFT HAND AND LEFT ANKLE CLINICAL INFORMATION: Dog bite COMPARISON: None TECHNIQUE: 3 views left hand and 3 views left ankle. FINDINGS: Left ankle: There is no visible fracture, dislocation or subluxation seen. No soft tissue laceration. No radiopaque foreign body is seen. Left ankle: There is moderate lateral malleolar soft tissue swelling. No visible acute fracture or dislocation seen. The ankle mortise and subtalar joints are normal. XR/XR hand LT 2V IMPRESSION: 1. Moderate lateral malleolar soft tissue swelling. No visible acute fracture or dislocation seen. 2. Unremarkable left ankle exam.
--- NOTE | ~2022-06-30 | XR_ITS ---
EXAMINATION: LEFT HAND AND LEFT ANKLE CLINICAL INFORMATION: Dog bite COMPARISON: None TECHNIQUE: 3 views left hand and 3 views left ankle. FINDINGS: Left ankle: There is no visible fracture, dislocation or subluxation seen. No soft tissue laceration. No radiopaque foreign body is seen. Left ankle: There is moderate lateral malleolar soft tissue swelling. No visible acute fracture or dislocation seen. The ankle mortise and subtalar joints are normal. XR/XR ankle LT min 3V IMPRESSION: 1. Moderate lateral malleolar soft tissue swelling. No visible acute fracture or dislocation seen. 2. Unremarkable left ankle exam.
[2022-06-30 14:37] VITALS: BP 121/75; PULSE 80; RESP 20; TEMP 36.7; O2SAT 97; BMI 35.4
--- NOTE | 2022-06-30 14:38 | ED_ITS ---
HPI - General Adult General Chief complaint: Extremity Problem <WHIT Levin - Last Filed: 06/30/22 14:39> Stated complaint: L ankle inj <WHIT Levin - Last Filed: 06/30/22 14:39> Time Seen by Provider: 06/30/22 14:48 <WHIT Levin - Last Filed: 06/30/22 14:39> Source: patient <Rossinhung Adame CNP - Last Filed: 06/30/22 16:40> Mode of arrival: ambulatory <Rossi Adame CNP - Last Filed: 06/30/22 16:40> Limitations: no limitations <Rossi Adame CNP - Last Filed: 06/30/22 16:40> History of Present Illness HPI narrative: Patient is a 27-year-old female who presents to the emergency department for multiple complaints. She reports approximately 1 week ago she was bit in her left hand by her dog. Dog is up-to-date on vaccinations. Puncture brock has healed to the palmar aspect of left hand at base of 5th digit. There is no erythema, swelling, pain. Denies fevers or chills. Has full range of motion to the digits/wrist. She ?just wants it checked out?. Yesterday while running outside with her nephew, she tripped over a root in the ground, causing her left foot to twist in words. She has been able to walk on the left foot but it is painful. Reports swelling to the lateral aspect of the ankle. Denies any numbness or tingling. Denies any prior injury to this ankle. <Rossi Adame CNP - Last Filed: 06/30/22 16:40> Related Data Home medications: Previous Rx's Medication Instructions Recorded medroxyprogesterone 10 mg tablet 10 mg PO DAILY 10 days #10 tabs 06/23/21 (Provera) vitamin with calcium 1 tab PO DAILY #30 tabs 06/23/21 no.72-iron 27 mg-folic acid 1 mg tablet ( Vitamins Plus Low Iron) <WHIT Levin Last Filed: 06/30/22 14:39> Allergies/adverse reactions: Allergies Allergy/AdvReac Type Severity Reaction Status Date / Time No Known Allergies Allergy Verified 06/23/21 13:53 <WHIT Levin - Last Filed: 06/30/22 14:39> Review of Systems Review of Systems: Pertinent positives as noted in HPI <Rossi Adame CNP - Last Filed: 06/30/22 16:40> Yes all other systems are reviewed and are negative <Rossi Adame CNP - Last Filed: 06/30/22 16:40> PMFSH Past Medical History Attestation statement: The following information was validated with the patient. <Rossi Adame CNP - Last Filed: 06/30/22 16:40> Source: old records reviewed <Rossi Adame CNP - Last Filed: 06/30/22 16:40> Medical History: Medical History Guillain-[place] syndrome Healthy adult Infertility associated with anovulation Morbid obesity with BMI of 40.0-44.9, adult PCOS (polycystic ovarian syndrome) <WHIT Levin - Last Filed: 06/30/22 14:39> Social History Social History: Social History Alcohol intake: never Patient Tobacco Use Status: Never used Tobacco Substance Use Type: Marijuana Advance Directives: No Advance Directives Information Provided: No <WHIT Levin - Last Filed: 06/30/22 14:39> Physical Exam ED Vital Signs: Vital Signs - 24 hr 06/30/22 14:37 Temperature 98.0 F Pulse Rate 80 Respiratory Rate 20 Blood Pressure 121/75 Pulse Oximetry 97 Oxygen Delivery Method Room Air BMI result Body Mass Index 35.4 <WHIT Levin - Last Filed: 06/30/22 14:39> Vital Signs - 24 hr 06/30/22 14:37 Temperature 98.0 F Pulse Rate 80 Respiratory Rate 20 Blood Pressure 121/75 Pulse Oximetry 97 Oxygen Delivery Method Room Air BMI result Body Mass Index 35.4 <Rossi Adame CNP - Last Filed: 06/30/22 16:40> Appearance: Alert.?Oriented to person, place and time. No acute distress.?Normal affect. Eyes: Pupils equal, round and reactive to light.? ENT: Pharynx normal.?? Neck: Normal inspection.? Neck supple.?? CVS: Heart sounds normal. Normal heart rate and rhythm.? Pulses normal.?? Respiratory: No respiratory distress.? Lung sounds clear to auscultation bilaterally?? Abdomen: Soft and non-tender? Skin: Skin warm and dry.? Normal skin color.? Extremities: No calf ttp. Left ankle with localized swelling and bruising to the lateral malleoli, decreased range of motion to ankle, but dorsiflexion and plantar extension are intact, DP/PT pulse bilaterally, no obvious deformity. Left hand without localized swelling, erythema, urine, decreased AROM 11-year-old healed puncture laceration on the palmar aspect at the base of the 5th digit Neuro: Moves all extremities spontaneously. Sensation intact bilaterally. Ambulates with normal steady gait. <Rossi Adame CNP - Last Filed: 06/30/22 16:40> Course Course Course Narrative: RME performed by Karla Gordon PA-C. Patient states that a week ago she was bit by her dog that is up to date on his shots on her left hand. Patient states that it isn't bothering her now but she has been icing it and wanted to get it checked out. Patient also states that yesterday she almost rolled her left ankle and so she wants that checked out as well. Imaging ordered. Patient unknown when her last tetanus shot was. Boostrix ordered. Patient placed back in waiting room pending room availability and results. <WHIT Levin - Last Filed: 06/30/22 14:39> Medications Administered Discontinued Medications Generic Name Dose Route Start Last Admin Trade Name Freq PRN Reason Stop Dose Admin Diphtheria/Tetanus/Acell Pertussis 0.5 ml 06/30/22 14:39 06/30/22 15:46 Diphth,Pertus(Acell),Tet Adult 0.5 Ml Syringe IM 06/30/22 14:40 Not Given .ONCE ONE <WHIT Levin - Last Filed: 06/30/22 14:39> Medications Administered Discontinued Medications Generic Name Dose Route Start Last Admin Trade Name Freq PRN Reason Stop Dose Admin Diphtheria/Tetanus/Acell Pertussis 0.5 ml 06/30/22 14:39 06/30/22 15:46 Diphth,Pertus(Acell),Tet Adult 0.5 Ml Syringe IM 06/30/22 14:40 Not Given .ONCE ONE <Rossi Adame CNP - Last Filed: 06/30/22 16:40> Medical Decision Making Medical Decision Making MDM Narrative: Patient is a 27-year-old female who reports to the emergency department for evaluation of left hand and left ankle concern. Left hand s/p dog bite 1 week ago, currently without any evidence of infection, no obvious deformity, puncture wound is well healed. No signs of systemic toxicity. XR of the left hand without any acute abnormality, not consistent with fracture, dislocation, septic arthritis, cellulitis. At this time would defer any treatment with antibiotic. 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 Left ankle with localized swelling to the lateral malleolus no bruising, no obvious deformity, able to weight bear though it is painful, range of motion is intact but decreased, neurovascularly intact distally. XR of the left ankle without acute fracture dislocation, soft tissue swelling present to the lateral malleolus consistent with sprain of the ankle. We discussed rest, ice, Luis bandage for compression, elevation, acetaminophen/ibuprofen as needed for pain. Reviewed worrisome signs and symptoms that would warrant re-evaluation in the emergency department. All questions were answered. Stable for discharge. <Rossi Adame CNP - Last Filed: 06/30/22 16:40> Differential Diagnosis Differential Diagnoses: The differential diagnosis associated with the presentation includes (As noted above) <Rossi Adame CNP - Last Filed: 06/30/22 16:40> Independent Interpretation I performed an independent interpretation of an: Plain X-Ray (Have personally interpreted x-ray of the left ankle and left hand and agree with radiologist impression) <Rossi Adame CNP - Last Filed: 06/30/22 16:40> Radiology Impression Discussion of test interpretation with radiology: I have reviewed the radiologist's reading. <Rossi Adame CNP - Last Filed: 06/30/22 16:40> Radiologist Impression: XR/XR ankle LT min 3V IMPRESSION: 1.? Moderate lateral malleolar soft tissue swelling. No visible acute fracture or dislocation seen. 2.? Unremarkable left ankle exam. XR/XR hand LT 2V IMPRESSION: 1.? Moderate lateral malleolar soft tissue swelling. No visible acute fracture or dislocation seen. 2.? Unremarkable left ankle exam. ?? <Rossi Adame CNP - Last Filed: 06/30/22 16:40> Prescription Management I considered prescription management with: Pain Medication and Antibiotic (No evidence of infection to the left hand at this time, antibiotic deferred) <Rossi Adame CNP - Last Filed: 06/30/22 16:40> Discharge Plan Discharge Clinical Impression: Ankle sprain Qualifiers: Encounter type: initial encounter Laterality: left Dog bite of hand Qualifiers: Encounter type: initial encounter Laterality: left Qualified Code(s): S61.452A - Open bite of left hand, initial encounter <WHIT Levin - Last Filed: 06/30/22 14:39> Patient Disposition: Home, Self-Care <WHIT Levin - Last Filed: 06/30/22 14:39> Instructions: Animal Bite (ED), Ankle Sprain (ED), R.I.C.E. Treatment (ED) <WHIT Levin - Last Filed: 06/30/22 14:39> Additional Instructions: As we discussed, the x-ray of your left hand today was normal, there is no evidence of infection. It was recommended that you have your tetanus vaccine updated, however you declined due to history of Francesca barre syndrome. The x-ray of your left ankle was normal, there is no fracture dislocation. Symptoms are consistent with a sprain at this time. Please be sure to rest, apply ice, use Luis bandage for compression, elevate the extremity when possible. You can take ibuprofen 200 mg, 3 tablets (600mg) every 6-8 hours as needed for pain, in addition to Tylenol 500 mg, 2 tablets (1,000mg) every 4-6 hours as needed for pain, but not to exceed 3 doses daily (3,000mg).? Follow-up with your primary care provider as needed. Return to emergency department any new or worsening symptoms or concerns. <WHIT Levin - Last Filed: 06/30/22 14:39> Prescriptions: No Action medroxyprogesterone [Provera] 10 mg tablet 10 mg PO DAILY 10 Days Qty: 10 2RF Rx Instructions: may repeat dose in 3 months if no menses and negative test Vitamin Plus Low Iron 27 mg iron- 1 mg tablet 1 tab PO DAILY Qty: 30 11RF <WHIT Levin - Last Filed: 06/30/22 14:39> Referrals: [facility] [Primary Care Provider] - <WHIT Levin - Last Filed: 06/30/22 14:39>
== END 2022-06-30 16:47 | disposition home or self-care (01) ==
PROVIDERS: Emergency Provider Emergency Medicine
DX: S93.402A Sprain of unspecified ligament of left ankle, initial encounter (principal); W18.41XA Slipping, tripping and stumbling without falling due to stepping on object, initial encounter; S61.452A Open bite of left hand, initial encounter; W54.0XXA Bitten by dog, initial encounter; Y93.02 Activity, running; Y92.017 Garden or yard in single-family (private) house as the place of occurrence of the external cause; Y99.9 Unspecified external cause status
CPT/HCPCS: 73120; 73610; 90471; 99283; 99284

== ENCOUNTER 2022-12-09 13:52 | Emergency (ER) | payer MEDICAID, SELFPAY ==
[2022-12-09 14:50] VITALS: BP 133/74; PULSE 75; RESP 16; TEMP 36.1; O2SAT 97; BMI 38.4
--- NOTE | 2022-12-09 14:53 | ED.GENADULT ---
HPI - General Adult General Chief complaint: General Medical Stated complaint: head injury Time Seen by Provider: 12/09/22 17:36 Source: patient and RN notes reviewed Mode of arrival: ambulatory Limitations: no limitations History of Present Illness HPI narrative: This is a 27-year-old female, with a past medical history of Guillain-[place], presenting to the emergency department for evaluation of neck pain. Patient reports that yesterday she tripped on her loose shoes and fell backwards with her hands behind her head. She did not hit the concrete behind her. Patient denies any loss of consciousness. Patient reports that she woke up this morning with a headache and a stiff neck. Patient took Tylenol and her headache has resolved. Patient denies any visual changes, blurred vision, weakness, numbness or tingling, denies chest pain or shortness of breath. She reports that her neck feels very stiff and she is unable to move it as well as she could before the fall. No other complaints or concerns at this time. MD complaint: Neck pain Onset (ago): day(s) Location: neck Radiation: non-radiation Severity: mild Quality: aching Pain Consistency: constant Relieving factors: none Exacerbating factors: none Associated symptoms: denies other symptoms Treatments prior to arrival: none Related Data Previous Rx's Medication Instructions Recorded medroxyprogesterone 10 mg tablet 10 mg PO DAILY 10 days #10 tabs 06/23/21 (Provera) vitamin with calcium 1 tab PO DAILY #30 tabs 06/23/21 no.72-iron 27 mg-folic acid 1 mg tablet ( Vitamins Plus Low Iron) cyclobenzaprine 5 mg tablet 5 mg PO TID PRN muscle spasm #20 12/09/22 tabs ibuprofen 600 mg tablet 600 mg PO Q6H PRN pain #30 tabs 12/09/22 Allergies Allergy/AdvReac Type Severity Reaction Status Date / Time No Known Allergies Allergy Verified 06/23/21 13:53 Review of Systems Review of Systems: Constitutional: No Weight loss, No Fever, No Chills, No Night Sweats, No Fatigue, No Malaise ENT/Mouth: No Hearing loss, No Ear Pain, No Nasal Congestion, No Sinus Pain, No Hoarseness, No sore throat, No Rhinorrhea, No Swallowing Difficulty Eyes: No Eye Pain, No Swelling, No Redness, No Foreign Body, No Discharge, No Vision Changes Cardiovascular: No Chest Pain, No SOB, No Dyspnea on Exertion, No Orthopnea, No Edema, No Palpitations Respiratory: No Cough, No Sputum, No Wheezing, No Smoke Exposure, No Dyspnea Gastrointestinal: No Nausea, No Vomiting, No Diarrhea, No Constipation, No Abdominal pain, No Hematochezia, No Melena Genitourinary: No irregular bleeding, No Dysuria, No Urinary Frequency, No Hematuria, No Urinary Incontinence/retention, No Urgency, No Flank Pain, No Urinary Flow Changes, No Hesitancy Musculoskeletal: No joint pain, No Myalgias, No Joint Swelling Skin: No Skin Lesions, No rash Neuro: No Weakness, No Numbness, No Paresthesias, No Loss of Consciousness, No Dizziness, No Headache Psych: No Anxiety/Panic, No Depression, No SI/HI/AH/VH, No Social Issues, Heme/Lymph: No Bruising, No Bleeding,No Lymphadenopathy Endocrine: No Polyuria, No Polydipsia, No Temperature Intolerance Yes all other systems are reviewed and are negative Constitutional: Constitutional: Reports as per [facility] Past Medical History Medical History Guillain-[place] syndrome Healthy adult Infertility associated with anovulation Morbid obesity with BMI of 40.0-44.9, adult PCOS (polycystic ovarian syndrome) Social History Social History Alcohol intake: never Patient Tobacco Use Status: Never used Tobacco Smoked in Last 30 Days: No Use of substances other than those prescribed or required for medical reasons: Yes Substance Use Type: Marijuana Substance Use Frequency: Daily Last Used Substance: Just Prior to Admission Advance Directives: No Advance Directives Information Provided: No Physical Exam ED Vital Signs: Vital Signs - 24 hr 12/09/22 14:50 12/09/22 16:35 Temperature 97 F Pulse Rate 75 69 Respiratory Rate 16 18 Blood Pressure 133/74 130/79 Pulse Oximetry 97 97 Oxygen Delivery Method Room Air Room Air BMI result Body Mass Index 38.4 Const General: cooperative, comfortable and no acute distress Orientation/consciousness: patient oriented x3 Limitations: no limitations HENMT Head: Yes normal to inspection, Yes normocephalic and Yes atraumatic Ears: hearing grossly normal bilaterally General nose exam: Normal external nose present Face and sinus: Yes normal facial exam Mouth: Normal oral and palatal mucosa present, oropharynx normal and moist mucous membranes Throat: Yes posterior oropharynx normal Eyes General: appearance normal, both eyes and all related structures Eyelids: Yes eyelids normal Conjunctivae: conjunctivae normal Sclerae: sclerae normal Pupils: Equal, round and reactive pupils present EOM: EOMs intact bilaterally Neck Neck: Yes normal visual inspection, Yes full ROM and Yes no lymphadenopathy Lymphatic: no lymphadenopathy noted Chest Chest palpation & inspection: normal inspection of the chest Resp Effort & Inspection: normal respiratory effort and able to speak in complete sentences Auscultation: clear to auscultation bilaterally, no crackles, no rales, no rhonchi and no wheezes Cardio Rate: regular rate Rhythm: regular rhythm Heart sounds: S1 normal heart sound present and S2 normal heart sound present GI Inspection: Yes normal to inspection Back/Spine/Pelvis Other: No midline cervical spine tenderness. Patient has palpable muscle spasms to her cervical paraspinous muscles and bilateral trapezius. Able to neck, able to touch chin to chest. Able to rotate neck laterally. Cervical Spine: normal cervical lordosis Thoracic/Lumbar Spine: thoracic and lumbar spine normal to inspection Skin General skin exam: no rashes or lesions noted Trauma: no lacerations or abrasions Wounds: no wounds Neuro General: patient oriented x3 and moves all extremities Cranial nerves: Yes Equal, round and reactive pupils present Extrem General: Yes normal to inspection Right upper extremity: normal to inspection Left upper extremity: normal to inspection Right lower extremity: normal to inspection Left lower extremity: normal to inspection Course Course Course Narrative: RME: 27 yold female presents to the ED for headcahe neck pain after falling yesterday unto back of head due to tripping. patient states no loss of conscisouness. Head CT and cervical CT scan ordered Medications Administered Discontinued Medications Generic Name Dose Route Start Last Admin Trade Name Freq PRN Reason Stop Dose Admin Diazepam 2 mg 12/09/22 17:55 12/09/22 18:06 Diazepam 2 Mg Tablet PO 12/09/22 17:56 2 mg ONCE ONE Administration Ketorolac Tromethamine 30 mg 12/09/22 17:55 12/09/22 18:06 Ketorolac Tromethamine 30 Mg/Ml Vial IM 12/09/22 17:56 Not Given ONCE ONE Medical Decision Making Medical Decision Making [facility] Narrative: 27-year-old female presenting to the emergency department for evaluation of neck pain since yesterday. Patient states that she had a mechanical fall and fell backwards, no head strike or loss of consciousness. CT head and cervical spine were unremarkable. Patient's symptoms consistent with cervical muscle spasm. Patient medicated with Valium p.o. and discharged with ibuprofen and muscle relaxants. Patient educated the importance gentle stretching, massage, and watching for any new or worsening symptoms. Patient understands and agrees with plan. Patient's vital signs have remained stable throughout her stay in the hospital. Patient has good range of motion of her neck, meningitis less likely given mechanical fall and no meningeal signs. No other complaints or concerns at this time. Differential Diagnosis Differential Diagnoses: The differential diagnosis associated with the presentation includes ICH, subdural hemorrhage, closed head injury, cervical muscle spasm, meningitis-unlikely Admission/Observation Consideration of admission/observation: Escalation of care including admission/observation considered Patient would have been admitted to the hospital had her work up had any findings where hospital admission was appropriate and her clinical presentation warranted hospital admission. Radiology Impression Discussion of test interpretation with radiology: I have reviewed the radiologist's reading. Radiologist Impression: EXAMINATION: CT HEAD WITHOUT CONTRAST CT CERVICAL SPINE WITHOUT CONTRAST CLINICAL INFORMATION: Hit head. Neck pain. COMPARISON: No relevant prior imaging. TECHNIQUE: Chief Technical Officer images were obtained. CT imaging of the head and cervical spine was performed without contrast. Data was reformatted into multiplanar images at the acquisition workstation. This CT examination was performed using dose optimization techniques as appropriate, including one or more of the following: Automated exposure control, iterative reconstruction, and adjustment of technique factors (mA and/or kVp) according to patient size (this includes techniques or standardized protocols for targeted exams where dose is matched to indication/reason for exam). Fleischner Society criteria for the followup of incidental pulmonary nodules was implemented if appropriate. DLP: 1195 mGy-cm. FINDINGS: Head: There is no acute intracranial hemorrhage or abnormal extra-axial collection. No intracranial mass effect or midline shift. Lateral and third ventricles are normal. No hydrocephalus. Fernandez-white matter differentiation is preserved and there is no evidence of acute territorial infarct. The calvarium and skull base are intact. Mastoid air cells and middle ear cavities are well aerated. No active paranasal sinus disease. Cervical spine: There is nonspecific reversal of the cervical lordosis. Alignment is otherwise normal. Vertebral heights are preserved. No acute cervical spine fracture. No abnormal prevertebral soft tissue swelling. Grossly no evidence of spinal canal compromise. No bony neuroforaminal encroachment. Visualized soft tissues of the neck are normal. Grossly no pathologically enlarged cervical lymph nodes. Lung apices are clear. CT/CT head/brain wo IV con IMPRESSION: Head: Unremarkable CT scan of the head. ? Cervical spine: No acute cervical spine fracture and no posttraumatic spinal subluxation. Dictated By: Frank Lam MD Signed By: <Electronically signed by Frank Lam MD in [place]> 12/09/22 1618 DD/ 1519 TD/TT:? Piano Sounding Board Matcher: EXAMINATION: CT HEAD WITHOUT CONTRAST CT CERVICAL SPINE WITHOUT CONTRAST CLINICAL INFORMATION: Hit head. Neck pain. COMPARISON: No relevant prior imaging. TECHNIQUE: Chief Technical Officer images were obtained. CT imaging of the head and cervical spine was performed without contrast. Data was reformatted into multiplanar images at the acquisition workstation. This CT examination was performed using dose optimization techniques as appropriate, including one or more of the following: Automated exposure control, iterative reconstruction, and adjustment of technique factors (mA and/or kVp) according to patient size (this includes techniques or standardized protocols for targeted exams where dose is matched to indication/reason for exam). Fleischner Society criteria for the followup of incidental pulmonary nodules was implemented if appropriate. DLP: 1195 mGy-cm. FINDINGS: Head: There is no acute intracranial hemorrhage or abnormal extra-axial collection. No intracranial mass effect or midline shift. Lateral and third ventricles are normal. No hydrocephalus. Fernandez-white matter differentiation is preserved and there is no evidence of acute territorial infarct. The calvarium and skull base are intact. Mastoid air cells and middle ear cavities are well aerated. No active paranasal sinus disease. Cervical spine: There is nonspecific reversal of the cervical lordosis. Alignment is otherwise normal. Vertebral heights are preserved. No acute cervical spine fracture. No abnormal prevertebral soft tissue swelling. Grossly no evidence of spinal canal compromise. No bony neuroforaminal encroachment. Visualized soft tissues of the neck are normal. Grossly no pathologically enlarged cervical lymph nodes. Lung apices are clear. CT/CT cervical spine wo IV con IMPRESSION: Head: Unremarkable CT scan of the head. ? Cervical spine: No acute cervical spine fracture and no posttraumatic spinal subluxation. Dictated By: Frank Lam MD Discharge Plan Discharge Clinical Impression: Spasm of cervical paraspinous muscle, Closed head injury Patient Disposition: Home, Self-Care Instructions: Head Injury (ED), Muscle Spasm (ED) Additional Instructions: Your head CT and neck CT were normal. Your symptoms are likely due to muscle spasms. Please take prescribed medication as directed. Gentle stretching massage, heat or ice to the area will help. If any new or worsening symptoms occur, please return to the emergency department. Prescriptions: New cyclobenzaprine 5 mg tablet 5 mg PO TID PRN (Reason: muscle spasm) Qty: 20 0RF ibuprofen 600 mg tablet 600 mg PO Q6H PRN (Reason: pain) Qty: 30 0RF No Action medroxyprogesterone [Provera] 10 mg tablet 10 mg PO DAILY 10 Days Qty: 10 2RF Rx Instructions: may repeat dose in 3 months if no menses and negative test Vitamin Plus Low Iron 27 mg iron- 1 mg tablet 1 tab PO DAILY Qty: 30 11RF Interventions: ED Discharge Assessment Last Done: 12/09/22 18:35 Discharge Date/Time: 12/09/22 18:35
[2022-12-09 16:35] VITALS: BP 130/79; PULSE 69; RESP 18; O2SAT 97
== END 2022-12-09 18:35 | disposition home or self-care (01) ==
PROVIDERS: Emergency Provider Internal Medicine
DX: M62.838 Other muscle spasm (principal); R51.9 Headache, unspecified; M54.2 Cervicalgia; Z79.899 Other long term (current) drug therapy
CPT/HCPCS: 70450; 72125; 96372; 99284

== ENCOUNTER 2023-06-20 11:37 | Outpatient (REF) | payer MEDICAID, SELFPAY ==
[2023-06-21 03:54] LABS: ~HepC Num1 0.16 S/CO (0.00-0.79); ~Hepatitis C Antibody Nonreactive (Nonreactive)
[2023-06-22 19:38] LABS: HIV RNA PCR Qn Copies Not Detected Copies/mL; HIV RNA PCR Qn Log Copies Not Detected Log cps/mL
== END 2023-06-20 11:38 | disposition home or self-care (01) ==
LOC: HO.HHCL 11:37
PROVIDERS: Visit Provider Nurse Practitioner Family
DX: E66.01 Morbid (severe) obesity due to excess calories (principal); Z11.3 Encounter for screening for infections with a predominantly sexual mode of transmission; Z68.38 Body mass index [BMI] 38.0-38.9, adult; Z86.39 Personal history of other endocrine, nutritional and metabolic disease
CPT/HCPCS: 36415; 86803; 87536; 87900

== ENCOUNTER → 2023-06-24 11:08 | Outpatient (REF) | payer MEDICAID, SELFPAY ==
[2023-06-24 14:33] LABS: Alanine Aminotransferase 16 U/L (0-31); Albumin Level 4.4 g/dL (3.5-5.0); Alkaline Phosphatase 72 U/L (39-117); Anion Gap 14 (12-20); Aspartate Amino Transferase 18 U/L (5-31); Bilirubin Total 0.3 mg/dL (0.0-1.0); Blood Urea Nitrogen 15 mg/dL (9-16); Calcium 9.4 mg/dL (8.4-10.2); Carbon Dioxide 22 mmol/L (22-29); Chloride 107 mmol/L (96-108); Cholesterol 204 mg/dL (<200); Estimated Glomerular Filt Rate > 60; Glucose Random 106 mg/dL (60-115); HDL Cholesterol 50 mg/dL (>40); LDL Cholesterol Calculated 134 mg/dL (<100); Potassium 3.9 mmol/L (3.3-5.1); Sodium 139 mmol/L (135-145); Total Protein 7.8 g/dL (6.5-8.0); Triglycerides 101 mg/dL (<150)
[2023-06-25 12:50] LABS: ~HepC Num1 0.16 S/CO (0.00-0.79); ~Hepatitis C Antibody Nonreactive (Nonreactive)
== END ==
LOC: HO.SL 11:08
PROVIDERS: PCP Nurse Practitioner Family; Visit Provider Nurse Practitioner Family
DX: Z11.3 Encounter for screening for infections with a predominantly sexual mode of transmission (principal); G47.00 Insomnia, unspecified; R06.83 Snoring; E66.01 Morbid (severe) obesity due to excess calories; Z68.38 Body mass index [BMI] 38.0-38.9, adult; Z86.39 Personal history of other endocrine, nutritional and metabolic disease
CPT/HCPCS: 36415; 80053; 80061; 86803; 95806

== ENCOUNTER → 2023-06-24 19:00 | Outpatient (BNV) | payer MEDICAID, SELFPAY | PROVIDERS: PCP Nurse Practitioner Family; Visit Provider Internal Medicine | DX: R06.83 Snoring (principal) | CPT/HCPCS: 95806 ==

== ENCOUNTER 2023-08-28 13:06 | Outpatient (REF) | payer MEDICAID, SELFPAY ==
--- NOTE | ~2023-08-28 | XR_ITS ---
EXAMINATION: XR ANKLE, RIGHT CLINICAL INFORMATION: Sprain of posterior ligamentous right ankle, edema and pain after injury COMPARISON: None available. TECHNIQUE: AP, lateral, and mortise views of the right ankle. FINDINGS: No fracture. Alignment is anatomic. No erosions. Joint spaces are maintained. Soft tissues are normal. XR/XR ankle RT min 3V IMPRESSION: Normal right ankle.
== END 2023-08-28 13:07 | disposition home or self-care (01) ==
LOC: HO.HHCX 13:06
PROVIDERS: Visit Provider Internal Medicine
DX: S93.491A Sprain of other ligament of right ankle, initial encounter (principal); X58.XXXA Exposure to other specified factors, initial encounter; Y93.9 Activity, unspecified; Y92.9 Unspecified place or not applicable; Y99.9 Unspecified external cause status
CPT/HCPCS: 73610

== ENCOUNTER 2023-09-12 13:10 | Outpatient (RCR) | payer MEDICAID, SELFPAY | END 2023-11-13 09:45 | disposition home or self-care (01) | LOC: HO.PT 13:10 | PROVIDERS: PCP Nurse Practitioner Family; Visit Provider Internal Medicine | DX: S93.491A Sprain of other ligament of right ankle, initial encounter (principal) | CPT/HCPCS: 97110; 97161 ==

== ENCOUNTER 2024-03-03 11:22 | Outpatient (REF) | payer MEDICAID, SELFPAY ==
[2024-03-03 13:34] LABS: HCG Quantitative < 2 mIU/mL
== END 2024-03-03 11:23 | disposition home or self-care (01) ==
LOC: HO.HHCL 11:22
PROVIDERS: Visit Provider Emergency Medicine
DX: N92.6 Irregular menstruation, unspecified (principal)
CPT/HCPCS: 36415; 84702

== ENCOUNTER 2025-01-11 15:12 | Outpatient (REF) | payer MEDICAID, SELFPAY ==
--- NOTE | ~2025-01-11 | XR_ITS ---
EXAMINATION: XR HAND 3 OR MORE VIEWS RIGHT HISTORY: Right hand pain, swelling of the right proximal middle finger after trauma COMPARISON: There are no prior studies available for comparison. FINDINGS: Three views of the right hand are submitted. Osseous mineralization is normal. A tiny linear osseous density is seen at the radial aspect of the PIP joint of the middle finger which may represent an avulsion fracture fragment. The bones are otherwise intact. The joint spaces are preserved. The soft tissues are unremarkable. XR/XR hand RT min 3V IMPRESSION: Probable avulsion fracture fragment adjacent to the PIP joint of the middle finger. Electronically signed by: Frank Steve MD 01/11/2025 03:35 PM EDT
--- OUTSIDE RECORDS SUMMARY | 2025-01-11 15:30 | XMS_ITS | Clinical Summary ---
Author Organization [employer] Address [address] [facility] [address] [place] [address] Care Team Providers Care Distribution Specialist Name Role Phone Diya Ramires EDGE STAINER Primary Care Provider [phone] Allergies No known active allergies Medications * This document contains information received from the source organization and may not represent a complete record from that organization. fluticasone (Flonase Allergy Relief) 50 MCG/ACT nasal spray Administer 1 spray into each nostril Once per day. Shake gently. Before first use, prime pump. After use, clean tip and replace cap. 16 g 12 4 03/03/20 25 Active acetaminophen (Tylenol) 500 MG tablet Take 2 tablets (1,000 mg) by mouth every 6 (six) hours if needed for moderate pain or fever. 30 tablet 4 Active loratadine (Claritin) 10 MG tablet TAKE 1 TABLET BY MOUTH EVERY DAY 90 tablet 1 4 Active Active Problems Problem Noted Date Diagnosed Date Moderate anxiety 07/25/2023 Moderate episode of recurrent major depressive d isorder 06/13/2022 Assessment & Plan (07/25/2023 4:28 PM EST): PROGRESS NOTE: ID: Deisy is a 28 y.o. straight-identified cis-female with previous documented hx of Depression and Anxiety. MH services including OP Psychotherapy; who presents for Anxiety and Depression. During IBH Consult Deisy presenting with depressed mood, loss of interests/pleasure , changes in sleep difficulty falling asleep and difficulty staying asleep , change in appetite or weight overeating, psychomotor agitation, fatigue/loss of energy and excessive worry/anxiety, difficulty controlling worry, restless/keyed up/On edge, easily fatigued, irritability, muscle tension, and sleep disturbance difficulty falling asleep and difficulty staying asleep ; for a period of 6-12 mo, for all symptoms in the context of patient unable to reported context factors but verbalized feeling lonely, lack of social support. PLAN: New/Additional Services needed Off-site services for Behavioral Health Integration Plan External OP therapy referral Patient Self Plan Patient to utilize skills provided in intervention , Patient to reach out to [facility] ED team as needed, and Patient to reach out to [facility] as needed PCOS (polycystic ovarian syndrome) 06/13/2022 Obesity 03/02/2021 Oligomenorrhea 03/02/2021 Encounters Date Type Department Care Team Description 01/11/2025 3:40 PM EDT Office Visit [facility] [address] [place] [phone] Right hand pain (Primary Dx); Swelling of right middle finger 01/11/2025 Travel 01/05/2025 Telephone [facility] [address] [place] [address] [phone] Diya Ramires NP recall 10/15/2024 Telephone [facility] [address] [place] [phone] Vanessa Santiago MA scheduled physical appt from Last 3 Months Immunizations Immunization Administration Dates Next Due Hep A, ped/adol, 2 dose 07/25/2015 Meningococcal [id number] [id number] 12/18/2016 Social History Tobacco Use Types Packs/Day Years Used Date Smoking Tobacco: Never Passive Smoke Exposure: Never Smokeless Tobacco: Never Tobacco Cessation:Counseling Given: Not Answered Alcohol Use Standard Drinks/Week Comments Not Currently 0 (1 standard drink = 0.6 oz pur e alcohol) Depression Answer Date Recorded Patient Health Questionnaire-9 Score 17 07/25/2023 Patient Health Questionnaire-9 Score 17 07/25/2023 Last PHQ-9: Questionnaire Data Not on file 0 07/25/2023 Housing Stability Answer Date Recorded What is your housing situation today? I have lisbet tate 03/28/[address] you li ve. Do you have problems with any of the following? None of the above 03/28/2023 Food Insecurity Answer Date Recorded Within the past 12 months, y ou worried that your food would run out before you got money to buy more: Often true 06/20/2023 Within the past 12 months,th e food you bought just didn't last and you didn't have enough money to get more: Never True Transportation Answer Date Recorded In the past 12 months, has l ack of transportation kept you from medical appts, meetings, work or from getting things needed for daily living? I am not sure 06/20/2023 Utilities Answer Date Recorded In the past 12 months, has t he electric, gas, oil or water company threatened to shut off services in your home? No 03/28/2023 Depression Answer Date Recorded Patient Health Questionnaire-2 Score 6 07/25/2023 Comments No Sex and Gender Information Value Date Recorded Sex Assigned at Female 04/02/2022 10:39 AM EDT Legal Sex Female 10:39 AM EDT Gender Identity Female 04/02/2022 10:39 AM EDT Sexual Orientation Straight 04/02/2022 10 :39 AM EDT Last Filed Vital Signs Vital Sign Reading Time Taken Comments Blood Pressure 136/82 01/11/2025 2:03 PM EDT Pulse 68 01/11/2025 2:03 PM EDT Temperature 36.6 C (97.8 F) 01/11/2025 2:03 PM EDT Respiratory Rate 18 01/11/2025 2:03 PM EDT Oxygen Saturation 97% 01/11/2025 2:03 PM EDT Inhaled Oxygen Concentration - - Weight 96.4 kg (212 lb 9.6 oz) 01/11/2025 2:03 P M EDT Height 160 cm (5' 3 ) 01/11/2025 2:03 PM EDT Body Mass Index 37.66 01/11/2025 2:03 PM EDT Plan of Treatment Upcoming Encounters Date Type Department Care Team (Late st Contact Info) Description 01/11/2025 3:40 PM EDT Office Visit [facility] [address] [place] [phone] Right hand pain (Primary Dx); Swelling of right middle finger Health Maintenance Due Date Last Done Comments HIV Screening 1997 Disability Screening 1997 Alcohol/Substance Use Screening 2009 Family Planning (PISQ) 01/16/2012 HPV Vaccines (1 - 3-dose series) 01/16/2012 DTaP/Tdap/Td Vaccines (1 - Tdap) 01/16/2016 Hepatitis B Vaccines (1 of 3 - 19+ 3-dose series) 01/16/2016 Hepatitis A Vaccines (2 of 2 - 2-dose series) 01/23/2016 07/25/2015 SDOH Screening 10/31/2023 10/30/2022 Depression Monitoring 01/23/2024 07/25/2023 , 07/25/2023 COVID-19 Vaccine (1 - 2023-2 5 season) 2024 Pap Smear 05/11/2024 05/11/2021, 05/11/2021 Influenza Vaccine (#1) 2025 Tobacco Screening 06/15/2025 06/15/2024 Lipid Panel 06/24/2028 06/24/2023, 03/02/2021 Zoster Vaccines (1 of 2) 2047 RSV Patients and Patients Aged 60 years or older (1 - 1-dose 75+ series) 01/16/2072 Meningococcal Vaccine Aged Out 12/18/2016 No chris dory eligible based on patient's age to complete this topic Hepatitis C Screening Completed 06/24/2023 , 06/20/2023 HIB Vaccines Aged Out No longer eligi ble based on patient's age to complete this topic IPV Vaccines Aged Out No longer eligi ble based on patient's age to complete this topic Meningococcal B Vaccine Aged Out No l onger eligible based on patient's age to complete this topic Pneumococcal Vaccine: Pediatrics (0 to 5 Years) and At-Risk Patients (6 to 49) Years Aged Out No longer eligible b ased on patient's age to complete this topic RSV under 20 months Aged Out No longe r eligible based on patient's age to complete this topic Rotavirus Vaccines Aged Out No longer eligible based on patient's age to complete this topic Procedures Procedure Name Priority Date/Time Associated Diagnosis Comments HEPATITIS C AB W/REFL TO HCV RNA, QN, PCR Routine 06/24/2023 11:39 AM EST Routine screening for STI (sexually transmitted infection) LIPID PANEL, STANDARD Routine 06/24/2023 11:39 AM EST H/O elevated lipids THINPREP IMAGING SYSTEM PAP Routine 05/11/2021 3:59 PM EST from Last 3 Months or Most Recently Relevant to Health Maintenance Results * Hepatitis C Antibody with Reflex to HCV, RNA, Quantitative, Real-Time PCR (06/24/2023 11:39 AM EST) Hepatitis C Antibody Nonreactive Nonreactive [facility] Comment:Antibodies to HCV no t detected; does not exclude early acuteHCV infection. Blood Venous blood specimen / Unknown 06/24/2023 11:39 AM EST 06/24/2023 1:15 PM EST Karlie Srinivasan [facility] BLOOD ORDERABLES Final Resu lt [facility] [address] [place] [phone] * (ABNORMAL) Lipid Panel, Standard (06/24/2023 11:39 AM EST) Triglycerides 101 <150 mg/dL [facility] Comment:Desirable Triglyceri de: less than 150 mg/dLBorderline High Triglyceride 150-199 mg/dLHigh Triglyceride: 200-499 mg/dLVery High Triglyceride: greater than or equal to 5OO mg/dL Cholesterol 204(H) <200 mg/dL [facility] Comment:Desirable Cholestero l: less than 200 mg/dLBorderline High Cholesterol: 200-239 mg/dLHigh Cholesterol: greater than 239 mg/dL LDL Cholesterol Calculated 134(H) <100 mg/dL [facility] Comment:Desirable LDL: less than 100 mg/dLNear Optimal/Above Optimal LDL: 110- 129 mg/dLBorderline High LDL: 130-159 mg/dLHigh LDL: 160-189 mg/dLVery High LDL: greater than or equal to 190 mg/dL HDL Cholesterol 50 >40 mg/dL [facility] Comment:Desirable HDL: great er than 40 mg/dL Note: This HDL assay may give artificially low results in patients with liver disease. Blood Venous blood specimen / Unknown 06/24/2023 11:39 AM EST 06/24/2023 1:15 PM EST us Karlie Jeraldnatalia [facility] BLOOD ORDERABLES Final Resu lt [facility] [address] [place] [address] [phone] * THINPREP TIS PAP (05/11/2021 3:59 PM EST) Clinical Information: None given [facility] COMMENT SEE COMMENT [facility] Comment: EXPLANATORY NOTE: The Pap is a screening test for cervical cancer. It is not a diagnostic test and is subject to false negative and false positive results. It is most reliable when a satisfactory sample, regularly obtained, is submitted with relevant clinical findings and history, and when the Pap result is evaluated along with historic and current clinical information. NO COLLECTION DATE RECEIVED. WE HAVE USED THE DATE THE SPECIMEN WAS RECEIVED BY THIS LABORATORY THE COLLECTION DATE. IF THIS IS INCORRECT, PLEASE CONTACT CLIENT SERVICES. PHONE NUMBER: COMMENT: This Pap test has been evaluated with computer assisted technology. [facility] Shingle Packer : SEE COMMENT [facility] Comment: ALS, CT(ASCP) CT screening location: [place] [address] Interpretation/R esult: Negative for intraepithelial lesion or malignancy. [facility] LMP: NONE [facility]IV[facility] Prev. BX: NONE [facility] Prev. PAP: NONE [facility] SOURCE: None given [facility] Statement Of Adequacy: SEE COMMENT [facility] Comment: Satisfactory for evaluation. Endocervical/transformation zone component present. Age and/or menstrual status not provided 05/11/2021 3:59 PM EST us Hillary Lucas EDGE STAINER LAB PATHOLOGY ORDERABLES Final Result Performing Organization Address City/[facility]/ZIP Co de Phone Number [facility] [address] from Last 3 Months or Most Recently Relevant to Health Maintenance Insurance Care Teams Distribution Specialist Relationship Specialty Start Date End Date Diya Ramires NP [address] [place] [phone] PCP - General Family Medicine 02/05/24
--- OUTSIDE RECORDS SUMMARY | 2025-01-11 15:30 | XMS_ITS | Clinical Summary ---
Author Organization [facility] ity Address [address] [place] [address] Care Team Providers Care Admissions Clerk Name Role Phone Francoise Perez MD Primary Care Provider [phone] Surgical History Surgery Date Site/Laterality Comments OTHER SURGICAL HISTORY PROCEDURE: DENIES PREVIOUS SURGERY Medical History Medical History Date Comments Patient denies medical problems DX:Patient denies medical problems Gonorrhea contact, treated 02/2020 DX:Go norrhea contact, treated Family History Medical History Relation Name Comments No Known Problems Father Hypertension Maternal Grandmother No Known Problems Mother Relation Name Status Comments Father Alive Maternal Grandmother Alive Mother Alive Social History Tobacco Use Types Packs/Day Years Used Date Smoking Tobacco: Never Smokeless Tobacco: Never Alcohol Use Standard Drinks/Week Comments Yes 0 (1 standard drink = 0.6 oz pur e alcohol) Comments Unknown Sex and Gender Information Value Date Recorded Sex Assigned at Not on file Legal Sex Female 3:59 AM EST Gender Identity Not on file Sexual Orientation Not on file Obstetrics History Plan of Treatment Health Maintenance Due Date Last Done Comments DTaP,Tdap,and Td Vaccines (1 - Tdap) 01/16/2016 Hepatitis B Vaccines (1 of 3 - 19+ 3-dose series) 01/16/2016 Cervical Cancer Screening: P ap Smear 03/01/2023 03/01/2020 COVID-19 Vaccine (1 - 2023-2 5 season) 2024 Depression Screening 06/03/2024 Influenza Vaccine (#1) 2025 HIB Vaccines Aged Out No longer eligi ble based on patient's age to complete this topic HPV Vaccines Aged Out No longer eligi ble based on patient's age to complete this topic Hepatitis A Vaccines Aged Out No long er eligible based on patient's age to complete this topic IPV Vaccines Aged Out No longer eligi ble based on patient's age to complete this topic MMR Vaccines Aged Out No longer eligi ble based on patient's age to complete this topic Meningococcal ACWY Vaccine Aged Out N o longer eligible based on patient's age to complete this topic Meningococcal B Vaccine Aged Out No l onger eligible based on patient's age to complete this topic Pneumococcal Vaccine: Pediat rics (0 to 5 Years) and At-Risk Patients (6 to 49 Years) Aged Out No longer eligi ble based on patient's age to complete this topic RSV Immunization Patients Un scott 20 months Aged Out No longer eligible b ased on patient's age to complete this topic Varicella Vaccines Aged Out No longer eligible based on patient's age to complete this topic Procedures Procedure Name Priority Date/Time Associated Diagnosis Comments PAP SMEAR Routine 03/01/2020 from Last 3 Months or Most Recently Relevant to Health Maintenance Results * Pap smear (03/01/2020) 03/01/2020 Narrative HISTORICAL TESTING LAB RESULTING AGENCY - 03/10/2020 8:05 AM EDT [id number] THINPREP PAP, IMAGED: ATYPICAL SQUAMOUS CELLS OF UNDETERMINED SIGNIFICANCE (ASCUS) . SEDA KENNEDY(ASCP) (CASE SCREENED 03 04 2020) CLIVE NARAYAN M.D. , PATHOLOGIST (CASE ELECTRONICALLY SIGNED 03 07 2020) RESULT OF APTIMA HIGH RISK HPV ASSAY: HIGH RISK HPV: POSITIVE (SEROTYPES 16,18,31,33,35,39,45,51,52,56,58,59,66,68) RESULTS OF APTIMA HPV 16 AND 18/45 GENOTYPE ASSAY: HPV 16: NEGATIVE HPV 18/45: NEGATIVE COMPLETED ON 2020-03-10 ADEQUACY: SATISFACTORY ENDOCERVICAL/TRANSFORMATION ZONE COMPONENT PRESENT. SOURCE: THINPREP PAP HPV IF ASCUS, CERVICAL, IMAGED CLINICAL INFORMATION: HPV IF DIAGNOSIS OF ASCUS. HORMONES, PAP HX NONE, NO LMP RECORDED [Z12.4, Z01.419, Z11.3] Cynthia VASQUEZ LAB CYTOLOGY ORDERABLES Final Result HISTORICAL TESTING LAB RESULTING AGENCY from Last 3 Months or Most Recently Relevant to Health Maintenance Care Teams Admissions Clerk Relationship Specialty Start Date End Date Francoise Perez MD PCP - General Internal Medicine 12/20/20
== END 2025-01-11 15:13 | disposition home or self-care (01) ==
LOC: HO.HHCX 15:12
PROVIDERS: Visit Provider Internal Medicine Geriatric Medicine
DX: M79.641 Pain in right hand (principal); M79.89 Other specified soft tissue disorders
CPT/HCPCS: 73130

== ENCOUNTER → 2025-01-11 15:13 | Outpatient (BNV) | payer MEDICAID, SELFPAY | PROVIDERS: Visit Provider Radiology Diagnostic Radiology | DX: M79.641 Pain in right hand (principal) | CPT/HCPCS: 73130 ==

== ENCOUNTER 2025-03-12 18:29 | Outpatient (REF) | payer MEDICAID, SELFPAY ==
[2025-03-13 02:48] LABS: CT PCR Urine DETECTED (Not Detect.); NG PCR Urine NOT DETECTED (Not Detect.)
== END 2025-03-12 18:30 | disposition home or self-care (01) ==
LOC: HO.HHCLNP 18:29
PROVIDERS: Visit Provider Nurse Practitioner Family
DX: R10.20 Pelvic and perineal pain unspecified side (principal); Z20.2 Contact with and (suspected) exposure to infections with a predominantly sexual mode of transmission
CPT/HCPCS: 87491; 87591

== ENCOUNTER 2025-03-31 12:09 | Outpatient (REF) | payer MEDICAID, SELFPAY ==
--- OUTSIDE RECORDS SUMMARY | 2025-03-31 10:45 | XMS_ITS | Encounter Summary ---
Author Organization [employer] Address [address] [facility] [address] [place] [address] Care Team Providers Care Boot Trimmer Name Role Phone Diya Ramires NP Primary Care Provider [phone] Reason for Visit * Reason Comments transfer patient Encounter Details Date Type Department Care Team ([facility] st Contact Info) Description 03/31/2025 10:45 AM EDT Office Visit [facility] [address] [place] [address] Diya Ramires NP [address] [place] [address] Encounter to establish care with new provider (Primary Dx); Routine screening for STI (sexually transmitted infection); Irregular menses; Encounter for health-related screening Social History Tobacco Use Types Packs/Day Years Used Date Smoking Tobacco: Never Passive Smoke Exposure: Never Smokeless Tobacco: Never Alcohol Use Standard Drinks/Week Comments Yes 0 (1 standard drink = 0.6 oz pur e alcohol) 1 per mon Alcohol Answer Date Recorded How often do you have a drink containing alcohol ? 2 03/31/2025 How many drinks containing a lcohol do you have on a typical day when you are drinking? 0 03/31/2025 How often do you have six or more drinks on one occasion? 0 03/31/2025 Depression Answer Date Recorded Patient Health Questionnaire-9 Score 9 03/31/2025 Patient Health Questionnaire-9 Score 9 03/31/2025 Last PHQ-9: Questionnaire Data Not on file 1 Housing Stability Answer Date Recorded What is your housing situation today? I have lisbet tate 03/24/[address] you li ve. Do you have problems with any of the following? None of the above 03/24/2025 Food Insecurity Answer Date Recorded Within the past 12 months, y ou worried that your food would run out before you got money to buy more: Never True 03/24/2025 Within the past 12 months,th e food you bought just didn't last and you didn't have enough money to get more: Never True Transportation Answer Date Recorded In the past 12 months, has l ack of transportation kept you from medical appts, meetings, work or from getting things needed for daily living? No 03/24/2025 Utilities Answer Date Recorded In the past 12 months, has t he electric, gas, oil or water company threatened to shut off services in your home? No 03/24/2025 Depression Answer Date Recorded Patient Health Questionnaire-2 Score 2 03/31/2025 Internet Access Answer Date Recorded Internet Access Q1 Yes 03/24/2025 Internet Access Q2 Not on file 03/24/2025 Comments No Sex and Gender Information Value Date Recorded Sex Assigned at Female 04/02/2022 10:39 AM EDT Legal Sex Female 10:39 AM EDT Gender Identity Female 04/02/2022 10:39 AM EDT Sexual Orientation Straight 04/02/2022 10 :39 AM EDT documented as of this encounter Last Filed Vital Signs Vital Sign Reading Time Taken Comments Blood Pressure 118/82 03/31/2025 11:14 AM EDT Pulse 72 03/31/2025 11:14 AM EDT Temperature 37 C (98.6 F) 03/31/2025 11:14 AM EDT Respiratory Rate 18 03/31/2025 11:14 AM EDT Oxygen Saturation 96% 03/31/2025 11:14 AM EDT Inhaled Oxygen Concentration - - Weight 94.1 kg (207 lb 6.4 oz) 03/31/2025 11:14 AM EDT Height 162.6 cm (5' 4 ) 03/31/2025 11:14 AM EDT Body Mass Index 35.6 03/31/2025 11:14 AM EDT documented in this encounter Functional Status * Over the past 2 weeks, how often have you been bothered by any of the following problems? Question Answer Date of Assessment Author Patient Health Questionnaire -2 Score 2 03/31/2025 12:02 PM EDT Vanessa Santiago MA * Little interest or pleasure in doing things Answer Date of Assessment Author Several days 03/31/2025 12:02 PM JOELT Vanessa Santiago MA * Feeling down, depressed, or hopeless Answer Date of Assessment Author Several days 03/31/2025 12:02 PM JOELT Vanessa Santiago MA * Trouble falling or staying asleep, or sleeping too much Answer Date of Assessment Author Nearly every day 03/31/2025 12:02 PM EDT Vanessa Santiago MA * Feeling tired or having little energy Answer Date of Assessment Author Nearly every day 03/31/2025 12:02 PM EDT Vanessa Santiago MA * Poor appetite or overeating Answer Date of Assessment Author Not at all 03/31/2025 12:02 PM JOELT Vanessa Santiago MA * Feeling bad about yourself - or that you are a failure or have let yourself or your family down Answer Date of Assessment Author Not at all 03/31/2025 12:02 PM EDT Vanessa Santiago MA * Trouble concentrating on things, such as reading the newspaper or watching television Answer Date of Assessment Author Not at all 03/31/2025 12:02 PM JOELT Vanessa Santiago MA * Moving or speaking so slowly that other people could have noticed? Or the opposite - being so fidgety or restless that you have been moving around a lot more than usual. Answer Date of Assessment Author Several days 03/31/2025 12:02 PM Vanessa Francis MA * Thoughts that you would be better off or hurting yourself in some way Answer Date of Assessment Author Not at all 03/31/2025 12:02 PM Vanessa Francis MA * Patient Health Questionnaire-9 Score Answer Date of Assessment Author 9 03/31/2025 12:02 PM Vanessa Francis MA * How difficult have these problems made it for you to do your work, take care of things at home, or get along with other people? Answer Date of Assessment Author Not difficult at all 03/31/2025 12:02 PM EDT Vanessa Altman MA * Over the last 2 weeks, how often have you been bothered by any of the following problems? Question Answer Date of Assessment Author Feeling nervous, anxious, or on edge 1 03/31/2025 11:18 AM EDT Vanessa Santiago MA Not being able to stop or co ntrol worrying 1 03/31/2025 11:18 AM EDT Vanessa Santiago MA Worrying too much about diff erent things 1 03/31/2025 11:18 AM EDT Vanessa Santiago MA Trouble relaxing 1 03/31/2025 11:18 AM EDT Vanessa Santiago MA Being so restless that it is hard to sit still 3 03/31/2025 11:18 AM EDT Vanessa Santiago MA Becoming easily annoyed or irritable 2 03/31/2025 11:18 AM EDT Vanessa Santiago MA Feeling afraid as if somethi ng awful might happen 0 03/31/2025 11:18 AM EDT Vanessa Santiago MA TAMRA-7 Total Score 9 03/31/2025 11:18 AM JOELT Vanessa Santiago MA documented as of this encounter Plan of Treatment Upcoming Encounters Date Type Department Care Team (Late st Contact Info) Description 05/13/2025 11:00 AM EST Office Visit [facility] [address] [place] [id number] Diya Ramires NP [address] [place] [address] 05/26/2025 10:00 AM EST Procedure Visit [address] [address] Diya Ramires NP [address] [place] [address] Scheduled Orders Name Type Priority Associated Diagnoses Orde r Schedule Lipid Panel, Standard Lab Routine Encounter for health-related screening Expected: 03/31/2025 (Approximate), Expires: 03/31/2026 TSH W/Reflex to FT4 Lab Routine Irregular menses Expected: 03/31/2025 (Approximate), Expires: 03/31/2026 Basic Metabolic Panel Lab Routine Encounter for health-related screening Expected: 03/31/2025 (Approximate), Expires: 03/31/2026 Hepatitis A,B,C Profile Lab Routine Routine screening for STI (sexually transmitted infection) Expected: 03/31/2025, Expires: 03/31/2026 Syphilis Screen Lab Routine Routine screening for STI (sexually transmitted infection) Expected: 03/31/2025 (Approximate), Expires: 03/31/2026 HIV-1/2 Antigen and Antibodies, Fourth Generation, with Reflexes Lab Routine Routine screening for STI (sexually transmitted infection) Expected: 03/31/2025 (Approximate), Expires: 03/31/2026 documented as of this encounter Procedures Procedure Name Priority Date/Time Associated Diagnosis Comments CBC WITH AUTO DIFFERENTIAL Routine 03/31/2025 12:14 PM EDT Irregular menses documented in this encounter Results * (ABNORMAL) CBC auto differential (03/31/2025 12:14 PM EDT) White Blood Count 4.5(L) 4.8 - 10.8 X10*3/uL [facility] Red Blood Count 4.41 4.20 - 5.50 X10*6/uL [facility] Hemoglobin 12.5 12.0 - 16.0 g/dl [facility] Hematocrit 38.5 37.0 - 47.0 % [facility] Mean Corpuscular Volume 87.3 80.0 - 98.0 fL [facility] Mean Corpuscular Hemoglobin 28.3 27.0 - 33.0 pg [facility] Mean Corpuscular HGB Conc 32.5 31.0 - 35.0 g/dl [facility] Red Cell Distribution Width 12.7 11.0 - 16.0 % [facility] Platelet Count 334 160 - 400 X10*3/uL [facility] Mean Platelet Volume 9.1(L) 9.4 - 12.3 fL [facility] Neutrophils Percent Auto 40.8(L) 45 - 73 % [facility] Imm Gran Pct Auto 0.4 0.0 - 0.4 % [facility] Lymphocytes Percent Auto 51.3(H) 20 - 40 % [facility] Monocytes Percent Auto 5.1 2 - 11 % [facility] Eosinophils Percent Auto 1.3 0 - 4 % [facility] Basophils Percent Auto 1.1 0 - 2 % [facility] NRBC Pct Auto 0.0 0.0 - 0.2 /100WBC [facility] Neutrophils Absolute Auto 1.8(L) 2.0 - 8.3 x10*3/uL [facility] Imm Gran Abs Auto 0.02 0.00 - 0.03 X10*3/uL [facility] Lymphocytes Absolute Auto 2.3 1.2 - 4.9 X10*3/uL [facility] Monocytes Absolute Auto 0.2 0.1 - 1.2 X10*3/uL [facility] Eosinophils Absolute Auto 0.1 0.0 - 0.4 X10*3/uL [facility] Basophils Absolute Auto 0.1 0.0 - 0.2 X10*3/uL [facility] NRBC Abs Auto 0.000 0.0 - 0.012 X10*3/uL [facility] Blood Venous blood specimen / Unknown 03/31/2025 12:14 PM EDT 03/31/2025 1:13 PM EDT Diya Ramires NP LAB BLOOD ORDERABLES Final Resu lt [facility] [address] [place] [address] [phone] documented in this encounter Visit Diagnoses Diagnosis Encounter to establish care with new provider- Primary Routine screening for STI (sexually transmitted infection) Screening examination for venereal disease Irregular menses Irregular menstrual cycle Encounter for health-related screening documented in this encounter Additional Health Concerns Assessment Noted Time PHQ-9 Depression Total Score: 9 03/31/20 25 12:02 PM EDT documented as of this encounter Care Teams Boot Trimmer Relationship Specialty Start Date End Date Diya Ramires NP [address] [place] [address] PCP - General Family Medicine 02/05/24 documented as of this encounter
[2025-03-31 13:17] LABS: MANUAL DIFF FLAG NO
[2025-03-31 13:39] LABS: Hematocrit 38.5 % (37.0-47.0); Hemoglobin 12.5 g/dl (12.0-16.0); Imm Gran Abs Auto 0.02 X10*3/uL (0.00-0.03); Imm Gran Pct Auto 0.4 % (0.0-0.4); Lymphocytes Absolute Auto 2.3 X10*3/uL (1.2-4.9); Mean Corpuscular HGB Conc 32.5 g/dl (31.0-35.0); Mean Corpuscular Hemoglobin 28.3 pg (27.0-33.0); Mean Corpuscular Volume 87.3 fL (80.0-98.0); NRBC Abs Auto 0.000 X10*3/uL (0.0-0.012); NRBC Pct Auto 0.0 /100WBC (0.0-0.2); Platelet Count 334 X10*3/uL (160-400); Red Blood Count 4.41 X10*6/uL (4.20-5.50); White Blood Count 4.5 X10*3/uL (4.8-10.8)
--- OUTSIDE RECORDS SUMMARY | 2025-03-31 15:34 | XMS_ITS | Encounter Summary ---
Author Organization [employer] Address [address] [facility] [address] [place] [address] Care Team Providers Care Bouffant Curtain Machine Tender Name Role Phone Diya Ramires FRUIT [employer]NER Primary Care Provider [phone] Reason for Visit * Reason Onset Date Comments Call Back Request 10/08/2024 Encounter Details Date Type Department Care Team ([facility] st Contact Info) Description 10/08/2024 Telephone [facility] [address] [place] [address] Diya Ramires NP [address] [place] [address] Call Back Request Social History Tobacco Use Types Packs/Day Years Used Date Smoking Tobacco: Never Passive Smoke Exposure: Never Smokeless Tobacco: Never Alcohol Use Standard Drinks/Week Comments Not Currently [...] AM EDT documented as of this encounter Miscellaneous Notes * Telephone Encounter - Alysia Segal - 10/08/2024 3:33 PM EDT Tc from pt requesting a callback to schedule physical , pt last physical was June 2023. Please return call [phone] documented in this encounter Plan of Treatment Upcoming Encounters Date Type Department Care Team (Late st Contact Info) Description 05/13/2025 11:00 AM EST Office Visit [facility] [address] [place] [id number] Diya Ramires NP [address] [place] [phone] 05/26/2025 10:00 AM EST Procedure Visit [facility] [address] [place] [phone] Diya Ramires NP [address] [place] [phone] documented as of this encounter Visit Diagnoses Not on filedocumented in this encounter Additional Health Concerns Assessment Noted Time PHQ-9 Depression Total Score: 17 024 3:57 PM EST documented as of this encounter Care Teams Bouffant Curtain Machine Tender Relationship Specialty Start Date End Date Diya Ramires NP [address] [place] [phone] PCP - General Family Medicine 02/05/24 documented as of this encounter
--- OUTSIDE RECORDS SUMMARY | 2025-03-31 15:34 | XMS_ITS | Clinical Summary ---
Author Organization [employer] Address [address] [facility] 7[address] [place] [address] Care Team Providers Care Airplane Cabin Attendant Name Role Phone Diya Ramires INDUSTRIAL FABRIC CUTTER Primary Care Provider [phone] Allergies No known active allergies Medications * This document contains information received from the source organization and may not represent a complete record from that organization. fluticasone (Flonase Allergy Relief) 50 MCG/ACT nasal spray Administer 1 spray into each nostril Once per day. Shake gently. Before first use, prime pump. After use, clean tip and replace cap. 16 g 12 4 Active acetaminophen (Tylenol) 500 MG tablet Take 2 tablets (1,000 mg) by mouth every 6 (six) hours if needed for moderate pain or fever. 30 tablet 4 Active loratadine (Claritin) 10 MG tablet TAKE 1 TABLET BY MOUTH EVERY DAY 90 tablet 1 4 Active famotidine (Pepcid) 20 MG tablet Take 1 tablet (20 mg) by mouth 2 times daily. 60 tablet 11 5 03/12/20 26 Active doxycycline (Vibra-Tabs) 100 MG tablet Take 1 tablet (100 mg) by mouth 2 times daily for 7 days. Take with a full glass of water and do not lie down for at least 30 minutes after. 14 tablet 5 03/22/20 25 Active Problems Problem Noted Date Diagnosed Date Amenorrhea 03/12/2025 Assessment & Plan (03/12/2025 3:58 PM EDT): Orders: POCT Urine Pelvic pain 03/12/2025 Assessment & Plan (03/12/2025 3:58 PM EDT): Orders: Chlamydia/N. 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 straight-identified cis-female with previous documented hx of Depression and Anxiety. services including OP Psychotherapy; who presents for [...] intervention , Patient to reach out to [facility] team as needed, and Patient to reach out to [facility] as needed PCOS (polycystic ovarian syndrome) 06/13/2022 Obesity 03/02/2021 Oligomenorrhea 03/02/2021 Encounters Date Type Department Care Team Description 03/31/2025 10:45 AM EDT Office Visit [facility] MEDICINE [address] [place], [place] [phone] Diya Ramires NP Encounter to establish care with new provider (Primary Dx); Routine screening for STI (sexually transmitted infection); Irregular menses; Encounter for health-related screening 03/31/2025 Travel 03/24/2025 Patient Outreach [facility] MED & PEDS [address] [place], [place] [phone] Diya Ramires NP Pre-visit Planning (SDOH negative, Tobacco screening negative. ) 03/15/2025 Results Follow-Up [address] [address] Saida Johnson NP POCT Urine , Chlamydia/N. Gonorrhoeae, PCR, Urine 03/12/2025 3:15 PM EDT Office Visit [address] [address] Saida Johnson NP Amenorrhea (Primary Dx); Pelvic pain; Epigastric pain 03/12/2025 Travel 03/12/[address] [address] Diya Ramires NP Nurse Triage 02/15/2025 6:00 PM EDT Office Visit [facility] WALK-IN [address] [address] Karlie Srinivasan FNP Swelling of right middle finger (Primary Dx) 02/15/2025 Travel 01/11/2025 3:40 PM EDT Office Visit [facility] WALKIN [address] [address] John Rubio MD Right hand pain (Primary Dx); Swelling of right middle finger 01/11/2025 Results Follow-Up [address] [address] John Rubio MD XR Hand 3+ Views Right 01/11/2025 Travel 01/05/[address] [address] Diya Ramires NP recall from Last 3 Months Immunizations Immunization Administration Dates Next Due Hep A, ped/adol, 2 dose 07/25/2015 Meningococcal MCV4P [id number]-135 12/18/2016 Family History Medical History Relation Name Comments Hypertension Maternal Grandmother Diabetes Mother's Brother Diabetes Mother's Sister Diabetes Paternal Grandmother Relation Name Status Comments Maternal Grandmother Mother's Brother Mother's Sister Paternal Grandmother Social History Tobacco Use Types Packs/Day Years Used Date Smoking Tobacco: Never Passive Smoke Exposure: Never Smokeless Tobacco: Never Tobacco Cessation:Counseling Given: Not Answered Alcohol Use Standard Drinks/Week Comments Yes 0 [...] Mass Index 35.6 03/31/2025 11:14 AM EDT Plan of Treatment Upcoming Encounters Date Type Department Care Team (Late st Contact Info) Description 05/13/2025 11:00 AM EST Office Visit [facility] MEDICINE [address] [place] [phone] Diya Ramires NP [address] [place] [address] 05/26/2025 10:00 AM EST Procedure Visit [address] [address] Diya Ramires NP [address] [place] [address] Health Maintenance Due Date Last Done Comments HIV Screening 1995 Family Planning (PISQ) 01/16/2012 HPV Vaccines (1 - 3-dose series) 01/16/2012 DTaP/Tdap/Td Vaccines (1 - Tdap) 01/16/2016 Hepatitis B Vaccines (1 of 3 - 19+ 3-dose series) 01/16/2016 Hepatitis A Vaccines (2 of 2 - 2-dose series) 01/23/2016 07/25/2015 Pap Smear 05/11/2024 05/11/2021, 05/11/2021 COVID-19 Vaccine (1 - 2023-2 5 season) 2025 Influenza Vaccine (#1) 2025 Depression Monitoring 09/29/2025 03/31/2025 , 03/31/2025 SDOH Screening 03/24/2026 03/24/2025 Alcohol/Substance Use Screening 03/31/2026 03/31/2025 Disability Screening 03/31/2026 03/31/2025 Tobacco Screening 03/31/2026 03/31/2025 Lipid Panel 06/24/2028 06/24/2023, 03/02/2021 Zoster Vaccines [...] Routine 03/31/2025 12:14 PM EDT Irregular menses CHLAMYDIA/TRICHOMONAS /NEISSERIA GONORRHOEAE, PCR, URINE Routine 03/12/2025 3:54 PM EDT Pelvic pain POCT , URINE Routine 03/12/2025 3:53 PM EDT Amenorrhea XR HAND 3+ VIEWS RIGHT Routine 01/11/2025 2:36 PM EDT Right hand pain Swelling of right middle finger HEPATITIS C AB W/REFL TO HCV RNA, QN, PCR Routine 06/24/2023 11:39 AM EST Routine screening for STI (sexually transmitted infection) LIPID PANEL, STANDARD Routine 06/24/2023 11:39 AM EST H/O elevated lipids THINPREP IMAGING SYSTEM PAP Routine 05/11/2021 3:59 PM EST from Last 3 Months or Most Recently Relevant to Health Maintenance Results * (ABNORMAL) CBC auto differential (03/31/2025 12:14 PM EDT) White Blood Count 4.5(L) 4.8 - 10.8 X10*3/uL [facility] Red Blood Count 4.41 4.20 - 5.50 X10*6/uL [facility] Hemoglobin 12.5 12.0 - 16.0 g/dl [facility] Hematocrit 38.5 37.0 - 47.0 % [facility] Mean Corpuscular Volume 87.3 80.0 - 98.0 fL [facility] Mean Corpuscular Hemoglobin 28.3 27.0 - 33.0 pg [facility] Mean Corpuscular HGB Conc 32.5 31.0 - 35.0 g/dl [facility] Red Cell Distribution Width 12.7 11.0 - 16.0 % [facility] Platelet Count 334 160 - 400 X10*3/uL [facility] Mean Platelet Volume 9.1(L) 9.4 - 12.3 fL [facility] Neutrophils Percent Auto 40.8(L) 45 - 73 % [facility] Imm Gran Pct Auto 0.4 0.0 - 0.4 % [facility] Lymphocytes Percent Auto 51.3(H) 20 - 40 % [facility] Monocytes Percent Auto 5.1 2 - 11 % [facility] Eosinophils Percent Auto 1.3 0 - 4 % [facility] Basophils Percent Auto 1.1 0 - 2 % [facility] NRBC Pct Auto 0.0 0.0 - 0.2 /100WBC [facility] Neutrophils Absolute Auto 1.8(L) 2.0 - 8.3 x10*3/uL [facility] Imm Gran Abs Auto 0.02 0.00 - 0.03 X10*3/uL [facility] Lymphocytes Absolute Auto 2.3 1.2 - 4.9 X10*3/uL [facility] Monocytes Absolute Auto 0.2 0.1 - 1.2 X10*3/uL [facility] Eosinophils Absolute Auto 0.1 0.0 - 0.4 X10*3/uL [facility] Basophils Absolute Auto 0.1 0.0 - 0.2 X10*3/uL [facility] NRBC Abs Auto 0.000 0.0 - 0.012 X10*3/uL [facility] Blood Venous blood specimen / Unknown 03/31/2025 12:14 PM EDT 03/31/2025 1:13 PM EDT us Diya Ramires INDUSTRIAL FABRIC CUTTER LAB BLOOD ORDERABLES Final Resu lt [facility] [address] [place] [address] [phone] * (ABNORMAL) Chlamydia/N. Gonorrhoeae, PCR, Urine (03/12/2025 3:54 PM EDT) CT PCR, Urine DETECTED(A) Not Detect. [facility] Comment:Detected results may be observed after successful antibiotictreatment due to target nucleic acids from residualnon-viable chlamydia. As with many diagnostic tests, resultsfrom the Xpert CT/NG assay should be interpreted inconjunction with other laboratory and clinical dataavailable to the clinician.Xpert CT/NG performance has not been evaluated in patientsless than 14 years of age. The assay should not be used forthe evaluationof suspected sexual abuse or for other medico- legalindications. Additional testing is recommended inany circumstance when false positive or false negativeresults could lead to adverse medical, social orpsychological consequences.These results must be reported by the ordering clinician orclinical facility to the [facility] required by state law. NG PCR, Urine NOT DETECTED Not Detect. [facility] Comment:A not detected test result does not exclude the possibilityof infection because test results can be affected byimproper specimen collection, concurrent antibiotic therapy,or the number of organisms in the specimen which may bebelow the sensitivity of the test. As with many diagnostictests, results from the Xpert CT/NG assay should beinterpreted in conjunction with other laboratory andclinical data available to the clinician.The Xpert CT/NG assay should not be used for the evaluationof suspected sexual abuse or for other medico-legalindications. Additional testing is recommended in anycircumstance when false positive or false negative resultscould lead to adverse medical, social or psychologicalconsequences. Urine (Urine, Random) 03/12/2025 3:54 PM EDT 03/12/2025 6:29 PM EDT Saida Johnson NP LAB URINE ORDERABLES Final Resul t [facility] [address] [place] [address] [phone] * POCT Urine (03/12/2025 3:53 PM EDT) Preg Test, Ur Negative Negative, Indeterminate, None Detected, Invalid, Specimen unsatisfactory for evaluation, Weakly Positive, 2+ QC Media Lot # [id number] Lot# Expiration Date ,026 Urine 03/12/2025 3:53 PM EDT Saida Johnson NP POINT OF CARE TEST ENTER/EDIT OR DERABLES Final Result * XR Hand 3+ Views Right (01/11/2025 2:36 PM EDT) Anatomical Region Laterality Modality Upper Extremities, Hand Right Radiogra phic Imaging 01/11/2025 2:36 PM EDT Narrative 01/11/2025 3:38 PM EDT [facility] [address] [place] [address] XRay Report Signed Patient: Deisy Longo MR#: [id number] : 1995 Acct:[id number] Age/Sex: 29 / F ADM Date: 01/11/25 Loc: .HHCX Attending Dr: John Rubio MD Ordering Physician: John Rubio MD Date of Service: 01/11/25 Procedure(s): XR hand RT min 3V Accession Number(s): [id number] cc: John Rubio MD EXAMINATION: XR HAND 3 OR MORE VIEWS RIGHT HISTORY: Right hand pain, swelling of the right proximal middle finger after trauma COMPARISON: There are no prior studies available for comparison. FINDINGS: Three views of the right hand are submitted. Osseous mineralization is normal. A tiny linear osseous density is seen at the radial aspect of the PIP joint of the middle finger which may represent an avulsion fracture fragment. The bones are otherwise intact. The joint spaces are preserved. The soft tissues are unremarkable. XR/XR hand RT min 3V IMPRESSION: Probable avulsion fracture fragment adjacent to the PIP joint of the middle finger. Electronically signed by: Frank Steve MD 01/11/2025 03:35 PM EDT Dictated By: Frank Steve MD Signed By: <Electronically signed by Frank Steve MD in OV> 01/11/25 1535 DD/ 1436 TD/TT: 01/11/25 1500 Pipe Bowls Paint Trimmer: Procedure Note Donotuseinterpreter, Image - 01/11/[address] [address] XRay Report Signed Patient: Katina Longo#: [id number] : 1995Acct:[id number] Age/Sex: 29 / FADM Date: 01/11/25 Loc: HO.HHCX Attending Dr: John Rubio MD Ordering Physician: John Rubio MD Date of Service: 01/11/25 Procedure(s): XR hand RT min 3V Accession Number(s): [id number] cc: John Rubio MD EXAMINATION: XR HAND 3 OR MORE VIEWS RIGHT HISTORY: Right hand pain, swelling of the right proximal middle finger after trauma COMPARISON: There are no prior studies available for comparison. FINDINGS: Three views of the right hand are submitted. Osseous mineralization is normal. A tiny linear osseous density is seen at the radial aspect of the PIP joint of the middle finger which may represent an avulsion fracture fragment. The bones are otherwise intact. The joint spaces are preserved. The soft tissues are unremarkable. XR/XR hand RT min 3V IMPRESSION: Probable avulsion fracture fragment adjacent to the PIP joint of the middle finger. Electronically signed by: Frank Steve MD 01/11/2025 03:35 PM EDT RP Dictated By: Frank Steve MD Signed By: <Electronically signed by Frank Steve MD in OV> 01/11/25 1535 DD/ 1436 TD/TT: 01/11/25 1500 Pipe Bowls Paint Trimmer: John Rubio MD IMG XR PROCEDURES Final Result * Hepatitis C Antibody with Reflex to HCV, RNA, Quantitative, Real-Time PCR (06/24/2023 11:39 AM EST) Hepatitis C Antibody Nonreactive Nonreactive [facility] Comment:Antibodies to HCV no t detected; does not exclude early acuteHCV infection. Blood Venous blood specimen / Unknown 06/24/2023 11:39 AM EST 06/24/2023 1:15 PM EST Karlie Srinivasan ENTERPRISE INFRASTRUCTURE ARCHITECT LAB BLOOD ORDERABLES Final Resu lt [facility] [address] [place] [phone] * (ABNORMAL) Lipid Panel, Standard (06/24/2023 11:39 AM EST) Triglycerides 101 <150 mg/dL [facility] Comment:Desirable Triglyceri de: less than 150 mg/dLBorderline High Triglyceride 150-199 mg/dLHigh Triglyceride: 200-499 mg/dLVery High Triglyceride: greater than or equal to 5OO mg/dL Cholesterol 204(H) <200 mg/dL [facility] Comment:Desirable Cholestero l: less than 200 mg/dLBorderline High Cholesterol: 200-239 mg/dLHigh Cholesterol: greater than 239 mg/dL LDL Cholesterol Calculated 134(H) <100 mg/dL [facility] Comment:Desirable LDL: less than 100 mg/dLNear Optimal/Above Optimal LDL: 110- 129 mg/dLBorderline High LDL: 130-159 mg/dLHigh LDL: 160-189 mg/dLVery High LDL: greater than or equal to 190 mg/dL HDL Cholesterol 50 >40 mg/dL [facility] Comment:Desirable HDL: great er than 40 mg/dL Note: This HDL assay may give artificially low results in patients with liver disease. Blood Venous blood specimen / Unknown 06/24/2023 11:39 AM EST 06/24/2023 1:15 PM EST us Karlie Jeraldnatalia ENTERPRISE INFRASTRUCTURE ARCHITECT LAB BLOOD ORDERABLES Final Resu lt [facility] [address] [place] [address] [phone] * THINPREP TIS PAP (05/11/2021 3:59 [...] has been evaluated with computer assisted technology. [email or web address] Traffic Sign Erection Supervisor : SEE COMMENT [email or web address] Comment: ALS, CT(ASCP) CT screening location: [address] [address] Interpretation/R esult: Negative for intraepithelial lesion or malignancy. [email or web address] LMP: NONE [facility] Prev. BX: NONE [facility] Prev. PAP: NONE [facility] SOURCE: None given [facility] Statement Of Adequacy: SEE COMMENT [email or web address] Comment: Satisfactory for evaluation. Endocervical/transformation zone component present. Age and/or menstrual status not provided 05/11/2021 3:59 PM EST us Hillary Lucas INDUSTRIAL FABRIC CUTTER LAB PATHOLOGY ORDERABLES Final Result [facility] [address] from Last 3 Months or Most Recently Relevant to Health Maintenance Insurance [facility] C3 Care Teams Airplane Cabin Attendant Relationship Specialty Start Date End Date Diya Ramires NP [address] [place] [phone] PCP - General Family Medicine 02/05/24
--- OUTSIDE RECORDS SUMMARY | 2025-03-31 15:34 | XMS_ITS | Encounter Summary ---
Author Organization [employer] Address [address] [facility] 7t [place] [address] Care Team Providers Care Paid Search Marketing Strategist Name Role Phone Evelyn Hidalgo Primary Care Provider Shilpi Evelyn London Primary Care Provider Shilpi Karlie SalasP Primary Care Provider [phone] Diya Ramires NP Primary Care Provider [phone] Encounter Details Date Type Department Care Team (Late st Contact Info) Description 10/30/2022 Abstract [facility] MEDICINE [address] [place] [address] Evelyn Hidalgo FNP Social History Tobacco Use Types Packs/Day Years Used Date Smoking Tobacco: Never Alcohol Use Standard Drinks/Week Comments Not Currently 0 (1 standard drink = 0.6 oz pur e alcohol) Depression Answer Date Recorded Patient Health Questionnaire-9 Score 11 06/13/2022 Depression Answer Date Recorded Patient Health Questionnaire-2 Score 1 06/13/2022 Comments Unknown Sex and Gender Information Value Date Recorded Sex Assigned at Female 04/02/2022 10:39 AM EDT Legal Sex Female 10:39 AM EDT Gender Identity Female 04/02/2022 10:39 AM EDT Sexual Orientation Straight 04/02/2022 10 :39 AM EDT documented as of this encounter Plan of Treatment Upcoming Encounters Date Type Department Care Team (Late st Contact Info) Description 05/13/2025 11:00 AM EST Office Visit [facility] MEDICINE [address] [place] [address] Diya Ramires NP [address] [place] [address] 05/26/2025 10:00 AM EST Procedure Visit [facility] MEDICINE [address] [place] [address] Diya Ramires NP [address] [place] [address] documented as of this encounter Visit Diagnoses Not on filedocumented in this encounter Additional Health Concerns Assessment Noted Time PHQ-9 Depression Total Score: 11 023 2:22 PM EST documented as of this encounter Care Teams Paid Search Marketing Strategist Relationship Specialty Start Date End Date Evelyn Hidalgo FNP PCP - General Family Medicine 07/31/22 11/14/22 Evelyn Hidalgo FNP PCP - General Family Medicine 12/31/22 03/11/23 Karlie Srinivasan FNP [address] [place] [address] PCP - General Family Medicine 03/12/23 02/04/24 Diya Ramires NP [address] [place] [address] PCP - General Family Medicine 02/05/24 documented as of this encounter
--- OUTSIDE RECORDS SUMMARY | 2025-03-31 15:34 | XMS_ITS | Clinical Summary ---
Author Organization [facility] ity Address [address] [place] [address] Care Team Providers Care Pole Tester Name Role Phone Francoise Perez MD Primary Care Provider [phone] Surgical History Surgery Date Site/Laterality Comments OTHER [...] Cancer Screening: P ap Smear 03/01/2023 03/01/2020 HPV Vaccines (1 - 3-dose SCD M series) 01/16/2024 Depression Screening 06/03/2024 COVID-19 Vaccine ( - 2023-2 5 season) 2025 Influenza Vaccine (#1) 2025 RSV Immunization Adult Patie nts (1 - 1-dose 75+ series) 01/16/2072 HIB Vaccines Aged Out No longer eligi [...] RESULTING AGENCY - 03/10/2020 8:05 AM EDT [id number] THINPREP PAP, IMAGED: ATYPICAL SQUAMOUS CELLS OF [...] NO LMP RECORDED [Z12.4, Z01.419, Z11.3] Cynthia Awan [facility] CYTOLOGY ORDERABLES Final Result HISTORICAL TESTING LAB RESULTING AGENCY from Last 3 Months or Most Recently Relevant to Health Maintenance Care Teams Pole Tester Relationship Specialty Start Date End Date Francoise Perez MD PCP - General Internal Medicine 12/20/20
--- OUTSIDE RECORDS SUMMARY | 2025-03-31 15:34 | XMS_ITS | Encounter Summary ---
Author Organization [employer] Address [address] [facility] [address] 7[address] [place] [address] Care Team Providers Care Talent Scout Name Role Phone Diya Ramires CORK FLOOR INSTALLER Primary Care Provider [phone] Encounter Details Date Type Department Care Team (Latest Contact Info) Description 03/31/2025 Travel Social History Tobacco Use Types Packs/Day Years [...] AM EDT documented as of this encounter Functional Status * Over the past 2 weeks, how often have you been bothered by any of the following problems? Question Answer Date of Assessment Author Patient Health Questionnaire -2 Score 2 03/31/2025 12:02 PM EDT Vanessa Santiago MA * Little interest or pleasure in doing things Answer Date of Assessment Author Several days 03/31/2025 12:02 PM EDT Vanessa Santiago MA * Feeling down, depressed, or hopeless Answer Date of Assessment Author Several days 03/31/2025 12:02 PM JOELT Vanessa Santiago MA * Trouble falling or staying asleep, or sleeping too much Answer Date of Assessment Author Nearly every day 03/31/2025 12:02 PM JOELT Vanessa Santiago MA * Feeling tired or [...] PM JOELT Vanessa Santiago MA * Trouble concentrating on things, such as reading the newspaper or watching television Answer Date of Assessment Author Not at all 03/31/2025 12:02 PM EDT Vanessa Santiago MA * Moving or speaking so slowly that other people could have noticed? Or the opposite - being so fidgety or restless that you have been moving around a lot more than usual. Answer Date of Assessment Author Several days 03/31/2025 12:02 PM JOELT Vanessa Santiago MA * Thoughts that you would be better off or hurting yourself in some way Answer Date of Assessment Author Not at all 03/31/2025 12:02 PM EDT Vanessa Santiago MA * Patient Health Questionnaire-9 Score Answer [...] co ntrol worrying 1 03/31/2025 11:18 AM JOELT Vanessa Santiago MA Worrying too much about diff erent things 1 03/31/2025 11:18 AM JOELT Vanessa Santiago MA Trouble relaxing 1 03/31/2025 11:18 AM JOELT Vanessa Santiago MA Being so restless that it is hard to sit still 3 03/31/2025 11:18 AM JOELT Vanessa Santiago MA Becoming easily annoyed or irritable 2 03/31/2025 11:18 AM JOELT Vanessa Santiago MA Feeling afraid as if somethi ng awful might happen 0 03/31/2025 11:18 AM Vanessa Francis MA TAMRA-7 Total Score 9 03/31/2025 11:18 AM EDT Vanessa Santiago MA documented as of this encounter Plan of Treatment Upcoming Encounters Date Type Department Care Team (Late st Contact Info) Description 05/13/2025 11:00 AM EST Office Visit [address] [address] Diya Ramires NP [address] [place] [address] 05/26/2025 10:00 AM EST Procedure Visit [address] [address] Diya Ramires NP [address] [place] [address] documented as of this encounter Visit Diagnoses Not on filedocumented in this encounter Additional Health Concerns Assessment Noted Time PHQ-9 Depression Total Score: 9 03/31/20 25 12:02 PM EDT documented as of this encounter Care Teams Talent Scout Relationship Specialty Start Date End Date Diya Ramires NP [address] [place] [address] PCP - General Family Medicine 02/05/24 documented as of this encounter
--- OUTSIDE RECORDS SUMMARY | 2025-03-31 15:34 | XMS_ITS | Encounter Summary ---
Author Organization [employer] Address [address] [place] [address] Care Team Providers Care Comb Machine Operator Name Role Phone Karlie Srinivasan Primary Care Provider [phone] Diya Ramires NP Primary Care Provider [phone] Encounter Details Date Type Department Care Team ([facility] st Contact Info) Description 07/17/2023 Telephone [facility] [address] [place] [address] Karlie Srinivasan FNP [address] [place] [address] Social History Tobacco Use Types Packs/Day Years Used Date Smoking Tobacco: Never Passive Smoke Exposure: Never Smokeless Tobacco: Never Alcohol Use Standard Drinks/Week Comments Not Currently 0 (1 standard drink = 0.6 oz pur e alcohol) Depression Answer Date Recorded Patient Health Questionnaire-9 Score 9 06/20/2023 Patient Health Questionnaire-9 Score 9 06/20/2023 Last PHQ-9: Questionnaire Data Not on file 0 06/20/2023 Housing Stability Answer Date Recorded What is [...] Date Recorded Patient Health Questionnaire-2 Score 1 06/20/2023 Comments No Sex and Gender Information Value [...] Description 05/13/2025 11:00 AM EST Office Visit [facility] [address] [place] [phone] Diya Ramires NP [address] [place] [address] 05/26/2025 10:00 AM EST Procedure Visit [facility] [address] [place] [phone] Diya Ramires NP [address] [place] [phone] documented as of this encounter Visit Diagnoses Not on filedocumented in this encounter Additional Health Concerns Assessment Noted Time PHQ-9 Depression Total Score: 9 06/20/19 24 11:49 AM EST documented as of this encounter Care Teams Comb Machine Operator Relationship Specialty Start Date End Date Karlie [place] [address] PCP - General Family Medicine 03/12/23 02/04/24 Diya Ramires NP [address] [place] [phone] PCP - General Family Medicine 02/05/24 documented as of this encounter
[2025-03-31 16:25] LABS: Anion Gap 12 (12-20); Blood Urea Nitrogen 16 mg/dL (9-16); Calcium 9.6 mg/dL (8.4-10.2); Carbon Dioxide 24 mmol/L (22-29); Chloride 109 mmol/L (96-108); Cholesterol 168 mg/dL (<200); Estimated Glomerular Filt Rate > 60; HDL Cholesterol 41 mg/dL (>40); Potassium 4.2 mmol/L (3.3-5.1); Sodium 141 mmol/L (135-145); Triglycerides 140 mg/dL (<150)
[2025-04-01 04:11] LABS: Hepatitis A Antibody IgM 0.19 Index (0-0.79); Syphilis Screen Nonreactive (Nonreactive); ~Hepatitis A Antibody IgM Nonreactive (Nonreactive)
[2025-04-01 04:34] LABS: HBS Num1 0.37 mIU/mL (0-7.99); HBc Num1 0.06 S/CO (0.00-0.79); HBsAGNum1 0.37 S/CO (0.00-0.99); HIV Num 1 0.07 S/CO (0.00-0.99); Hepatitis B Surface Antigen Negative (Negative); ~HepC Num1 0.10 S/CO (0.00-0.79); ~Hepatitis B Surface Antibody NONREACTIVE (Nonreactive); ~Hepatitis C Antibody Nonreactive (Nonreactive)
== END 2025-03-31 12:10 | disposition home or self-care (01) ==
LOC: HO.HHCL 12:09
PROVIDERS: PCP Nurse Practitioner; Visit Provider Nurse Practitioner
DX: Z11.3 Encounter for screening for infections with a predominantly sexual mode of transmission (principal); Z11.4 Encounter for screening for human immunodeficiency virus [HIV]; Z11.59 Encounter for screening for other viral diseases; N92.6 Irregular menstruation, unspecified
CPT/HCPCS: 36415; 80048; 80061; 84443; 85025; 86704; 86706; 86709; 86780; 86803; 87340; 87389